=== PATIENT | female | born 1995 | race Caucasian/White ===

== ENCOUNTER 2021-06-13 02:01 | Emergency (ER) | payer SELFPAY ==
[2021-06-13] VITALS (7 sets, daily range): BP systolic 120–157; BP diastolic 67–102; PULSE 68–110; RESP 12–20; TEMP 36.6; O2SAT 99–100
--- NOTE | ~2021-06-13 | XR_ITS ---
EXAMINATION: XR chest 2V DATE: 06/13/2021 03:04 INDICATION: Shortness of breath TECHNIQUE: PA and lateral views of the chest are obtained. COMPARISON: None available FINDINGS: The lungs are free of acute opacities. There is no pleural effusion or pneumothorax. The ca rdiomediastinal silhouette is normal. The visualized bones and soft tissues are unremarkable. IMPRESSION: 1. No acute cardiopulmonary abnormality. Reviewed, dictated and finalized at location A. MANAGER
--- NOTE | 2021-06-13 02:16 | ECG_ITS ---
Measurements Intervals [place] Rate: 82 P: 52 AR: 148 QRS: 21 QRSD: 108 T: 41 QT: 341 QTc: 400 Interpretive Statements SINUS RHYTHM INCOMPLETE RIGHT BUNDLE BRANCH BLOCK BORDERLINE ECG Electronically Signed On 06-13-2021 7:16:16 [facility] by Marcial Kinney D.O.
[2021-06-13 02:46] LABS: Basophils Percent Auto 0.3 % (0.2-1.2); Eosinophils Absolute Auto 0.2 K/mm3 (0-0.3); Eosinophils Percent Auto 1.7 % (0-4.4); Hemoglobin 11.9 g/dL (12.0-15.0); Immature Granulocyte Absolute 0.03 K/mm3 (0.00-0.031); Immature Granulocyte Percent A 0.3 % (0-0.5); Lymphocytes Absolute Auto 3.03 K/mm3 (0.9-3.2); Lymphocytes Percent Auto 34.4 % (18.3-44.2); Mean Corpuscular HGB Conc 32.2 g/dl (32-36); Mean Corpuscular Hemoglobin 27.7 pg (26-34); Mean Corpuscular Volume 86.2 fl (80-100); Mean Platelet Volume 9.6 fl (7.4-10.4); Monocytes Absolute Auto 0.5 K/mm3 (0.1-0.6); Monocytes Percent Auto 5.8 % (2.6-8.5); Neutrophils Absolute Auto 5.1 K/mm3 (1.3-6.7); Neutrophils Percent Auto 57.5 % (45.5-73.1); Platelet Count Result 255 k/mm3 (150-375); Red Blood Count 4.29 M/mm3 (4.2-5.4); Red Cell Distribution Width 14.2 % (11.5-14.5); White Blood Count 8.8 K/mm3 (4.5-10.0)
[2021-06-13 02:55] LABS: INR 0.9; Prothrombin Time 11.6 Seconds (11.1-14.7)
[2021-06-13 02:56] LABS: Alanine Aminotransferase 19 U/L (4-35); Albumin Level 4.4 g/dL (3.5-5.1); Alkaline Phosphatase 76 U/L (38-126); Anion Gap 6 mmol/L (8-16); Aspartate Amino Transferase 26 U/L (14-36); Bilirubin,Total 0.5 mg/dL (0.2-1.3); Blood Urea Nitrogen 13 mg/dL (7-17); Calcium 9.4 mg/dL (8.4-10.2); Carbon Dioxide 26 mmol/L (22-30); Chloride 101 mmol/L (98-107); Estimated Glomerular Filt Rate > 60; Glucose 109 mg/dL (65-110); Partial Thromboplastin Time 28.5 SECONDS (22.3-36.8); Potassium 3.5 mmol/L (3.4-5.0); Sodium 133 mmol/L (137-145)
--- NOTE | 2021-06-13 02:59 | ED.GENADULT ---
HPI - General Adult General Chief complaint: Unspecified Stated complaint: Right leg pain, anxiety and sob Time Seen by Provider: 06/13/21 02:15 Source: patient and RN notes reviewed Mode of arrival: ambulatory Limitations: no limitations History of Present Illness HPI narrative: This is a 26 year old female who presents for evaluation of shortness of breath. PAtient states she had weird feeling to right hip and thigh. She is unable to describe it but said something just didn't feel right. This caused her to be anxious . She reports feeling anxious and short of breath so she came to ER. She denies any leg swelling or discoloration. She denies cough, fever, chills, nausea or vomiting. She does report history of intermittent episodes of anxiety. She denies smoking or taking OCP. Related Data Home Medications Medication Instructions Recorded Confirmed No Home Medications 06/13/21 06/13/21 Allergies Allergy/AdvReac Type Severity Reaction Status Date / Time No Known Allergies Allergy Verified 06/13/21 02:08 Review of Systems Review of Systems: All systems reviewed & are unremarkable except as noted in HPI and below PMFSH Past Medical History Medical History (Updated 06/13/21 @ 05:52 by Lorenza Ballard MD) Patient denies medical problems Surgical History Surgical History (Updated 06/13/21 @ 05:48 by Lorenza Ballard MD) History of bunionectomy of both great toes Social History Social History (Updated 06/13/21 @ 05:48 by Lorenza Ballard MD) Smoking status: Never smoker Alcohol intake: never Substance use: never Exam Narrative: GENERAL: Well-appearing, well-nourished, and in no acute distress. HEAD: Normocephalic, atraumatic EYES: PERRLA and EOMI, conjunctiva clear without discharge THROAT:Mucous membranes moist, Oropharynx normal without erythema, exudate, peritonsillar swelling or fluctuance NECK: Supple, without lymphadenopathy or mass RESPIRATORY: No respiratory distress, Airway patent, Respirations non-labored, Clear to auscultation without rales, rhonchi or wheeze HEART: Regular rate and rhythm. No murmur heard. Normal peripheral pulses. ABDOMEN: Soft, nontender, nondistended, normal active bowel sounds. No masses. No rebound or guarding, No organomegaly. EXTREMITIES: No edema, normal strength with full range of motion. SKIN: Warm, dry, normal color without rash NEURO: Alert and oriented x3. CN 2-12 grossly intact. No focal deficits. PSYCH: Normal mood and affect. Course Reevaluation(s) Reevaluation #1: I Discussed with patient labs and xray unremarkable. She appears to have strong pulses in feet, no signs of ischemia and neurovascularly intact. This appear to be anxiety as well Date: 06/13/21 Time: 05:51 Vital Signs Vital signs: Vital Signs Temperature 97.9 F 06/13/21 02:05 Pulse Rate 110 H 06/13/21 02:05 Respiratory Rate 18 06/13/21 02:05 Blood Pressure 157/102 H 06/13/21 02:05 Pulse Oximetry 100 06/13/21 02:05 Temperature 97.9 F 06/13/21 02:05 Pulse Rate 78 06/13/21 06:13 Respiratory Rate 14 06/13/21 06:13 Blood Pressure 122/72 06/13/21 06:13 Pulse Oximetry 100 06/13/21 06:13 Medical Decision Making Vital Signs Vital Signs: Vital Signs Temperature 97.9 F 06/13/21 02:05 Pulse Rate 110 H 06/13/21 02:05 Respiratory Rate 18 06/13/21 02:05 Blood Pressure 157/102 H 06/13/21 02:05 Pulse Oximetry 100 06/13/21 02:05 Temperature 97.9 F 06/13/21 02:05 Pulse Rate 78 06/13/21 06:13 Respiratory Rate 14 06/13/21 06:13 Blood Pressure 122/72 06/13/21 06:13 Pulse Oximetry 100 06/13/21 06:13 Lab Data Lab results reviewed: Yes I reviewed the patient's lab results. Result diagrams: 06/13/21 02:36 06/13/21 02:37 Labs: Lab Results 06/13/21 06/13/21 06/13/21 Range/Units 02:36 02:36 02:37 WBC 8.8 (4.5-10.0) K/mm3 RBC 4.29 (4.2-5.4) M/mm3 Hgb 11.9
[2021-06-13 03:02] LABS: D Dimer 0.27 ug/mL (<0.48)
[2021-06-13 03:06] LABS: Alveolar/Arterial O2 Gradient 49.3 mmHg; Base Excess ABG -1.3 mEq/l (+/-2.0); Carboxyhemoglobin 0.3 % THb (0-2.0); Fractional Inspired Oxygen 21 %; HCO3 ABG 22.3 mEq/l (22.0-26.0); Methemoglobin ABG 0.3 %THb (0-1.5); Oxygen Content ABG 16.4 %vol (16.0-22.0); Oxyhemoglobin 91.3 % THb (90.0-100.0); PCO2 ABG 33.9 mmHg (35.0-45.0); PO2 ABG 59.8 mmHg (80.0-100.0); PO2 FiO2 Ratio Arterial Blood 2.85 %; Reduced Hemoglobin 8.1 %THb (0-5.0); Total Hemoglobin 12.8 g/dL (12.0-18.0); pH ABG 7.436 (7.350-7.450)
[2021-06-13 03:07] LABS: Device ROOM AIR; Modified Allen's Test Pass; Site Drawn RIGHT RADIAL
== END 2021-06-13 06:15 | disposition home or self-care (01) ==
PROVIDERS: Emergency Provider General Practice; PCP Family Medicine
DX: F41.9 Anxiety disorder, unspecified (principal); R20.2 Paresthesia of skin; I45.10 Unspecified right bundle-branch block
CPT/HCPCS: 36415; 36600; 71046; 80053; 81025; 82375; 82805; 83050; 83605; 85025; 85380; 85610; 85730; 93005; 99283

== ENCOUNTER 2022-06-25 10:53 | Outpatient (CLI) | payer BC, SELFPAY ==
[2022-06-25] VITALS (27 sets, daily range): BP systolic 141–151; BP diastolic 77–88; PULSE 76–100; O2SAT 96–100
--- NOTE | 2022-06-25 11:56 | PM.IMHP ---
H&P: HPI History of Present Illness Date/Time: 06/25/22 11:56 Chief Complaint: malpresentation of fetus Narrative: Radhika is at 27yo G1 at 38.2 here for ECV for obilque presentation with head in LUQ. EFW 22%, ALFONZO 10. only complicated by anemia and anxiety. Review of Systems Review of Systems: All systems reviewed & are unremarkable except as noted in HPI and below PMFSH Past Medical History Medical History (Updated 06/25/22 @ 11:58 by Leah Anders MD) Patient denies medical problems Surgical History Surgical History (Updated 06/13/21 @ 05:48 by Lorenza Ballard MD) History of bunionectomy of both great toes Family History Family History (Updated 06/12/22 @ 14:34 by Kathrine Zuleta RN) Father Hypertension Social History Social History (Updated 06/13/21 @ 05:48 by Lorenza Ballard MD) Smoking status: Never smoker Alcohol intake: never Substance use: never Spiritual care concerns: No Meds Home Medications and Allergies Home Medications Medication Instructions Recorded Confirmed Type ferrous sulfate 325 mg (65 mg 325 mg PO DAILY 06/12/22 06/12/22 History iron) tablet prenat.vits,eloina,sww-irrg-bhcbv 1 tablet PO DAILY 06/12/22 06/12/22 History Allergies Allergy/AdvReac Type Severity Reaction Status Date / Time No Known Allergies Allergy Verified 06/25/22 11:21 Vital Signs Vital Signs - 24 hr 06/25/22 11:11 06/25/22 11:15 06/25/22 11:31 Pulse Rate 82 81 78 Blood Pressure 145/82 H 145/86 H 142/88 H 06/25/22 11:45 Pulse Rate 80 Blood Pressure 142/87 H Exam Const: General: no acute distress Resp: Effort & Inspection: normal respiratory effort Auscultation: clear to auscultation bilaterally Cardio: Rate: regular rate Rhythm: regular rhythm GI: GI Palp: Yes Soft to palpation Extrem: General: normal to inspection Assessment and Plan Assessment and plan (1) malpresentation: Code(s): O32.9XX0 - Maternal care for malpresentation of fetus, unspecified, not applicable or unspecified Status: Acute Plan terbutaline consented for ECV, will proceed FHT category 1
[2022-06-25] MEDS: TERBUTALINE SULFATE 1 MG/ML VIAL 0.25 MG SUB-Q (12:08)
--- NOTE | 2022-06-25 12:32 | W.PM.PROC2 ---
Procedure Note - Detailed Date of Procedure 06/25/22 Pre-op Diagnosis malpresentation Post-op Diagnosis Same Procedure Performed External Cephalic Version, failed Surgeon Leah Anders MD [employer] Chauf[employer]ur none Anesthesia None Indications oblique presentation with head in LUQ Description of Procedure heart tones were category 1 prior to procedure. She received terbutaline preprocedure. Ultrasound was done verifying anterior placenta, adequate fluid, and oblique presentation with head in the LUQ. Using ultrasound gel as lubricant, several attempts were made at both a forward roll and backward roll, but the head only moved to midline in the upper quadrant. Heart tones were intermittently visualized with the ultrasound and were normal. The procedure was terminated. Radhika tolerated the procedure well. The baby was placed back on the monitor for an additional hour. Estimated Blood Loss 0 Drains No Packing No Pathology None sent Complications No immediate complications Condition Stable Disposition Other (home after monitoring complete.)
--- NOTE | 2022-06-25 13:44 | PC.NURSE ---
Pt denies NASH, dizziness, changes in vision, RUQ, or swelling. Pt aware to come to [facility] to be evaluated for nay of these s/s. Pt reports she has hx of anxiety attacks and felt very anxious for the version.
== END 2022-06-25 13:40 | disposition home or self-care (01) ==
LOC: ANHOBOP 10:59 → ANHOBPP 11:01
PROVIDERS: PCP Family Medicine; Visit Provider Obstetrics & Gynecology
DX: O32.1XX0 Maternal care for breech presentation, not applicable or unspecified (principal); Z3A.00 Weeks of gestation of pregnancy not specified
CPT/HCPCS: 59412; 96372; 99199; J3105

== ENCOUNTER 2022-06-28 20:55 | Outpatient (RCR) | payer BC, SELFPAY ==
[2022-06-28 21:38] VITALS: BP 132/80; PULSE 84
== END 2022-07-16 13:38 | disposition home or self-care (01) ==
LOC: ANHOBOP 20:55
PROVIDERS: PCP Family Medicine; Visit Provider Obstetrics & Gynecology
DX: O36.8130 Decreased fetal movements, third trimester, not applicable or unspecified (principal); Z3A.38 38 weeks gestation of pregnancy
CPT/HCPCS: 59025

== ENCOUNTER 2022-07-02 05:29 | Inpatient (IN) | payer BC, SELFPAY ==
[2022-07-02] VITALS (60 sets, daily range): BP systolic 104–141; BP diastolic 52–101; PULSE 56–99; RESP 12–18; TEMP 36.1–36.6; O2SAT 96–100; BMI 36.8
--- NOTE | 2022-07-02 05:48 | LDADM ---
This patient, Radhika Tamez, was admitted to Labor/Delivery/Recovery 120 on 07/02/22 at 05:29. Plans for labor, pain management and were discussed with patient. Patient/family oriented to hospital policies and general routines including ID bracelet, bed and alarms, visiting hours, pain management, procedures, bathroom and other care routines, personal items, smoking policy, room service/diet and guest tray routines, security routines, and visiting hours. Patient/Family are encouraged to report perceived risks to care and to ask questions if they do not understand what they are told or what they should do. See OBIX for further documentation.
[2022-07-02 06:21] LABS: Basophils Percent Auto 0.3 % (0.2-1.2); Eosinophils Absolute Auto 0.1 K/mm3 (0-0.3); Eosinophils Percent Auto 0.8 % (0-4.4); Hematocrit 31.9 % (37.0-47.0); Hemoglobin 10.3 g/dL (12.0-15.0); Immature Granulocyte Absolute 0.05 K/mm3 (0.00-0.031); Immature Granulocyte Percent A 0.6 % (0-0.5); Lymphocytes Absolute Auto 1.85 K/mm3 (0.9-3.2); Lymphocytes Percent Auto 21.4 % (18.3-44.2); Mean Corpuscular HGB Conc 32.3 g/dl (32-36); Mean Corpuscular Hemoglobin 27.5 pg (26-34); Mean Corpuscular Volume 85.1 fl (80-100); Mean Platelet Volume 10.2 fl (7.4-10.4); Monocytes Absolute Auto 0.4 K/mm3 (0.1-0.6); Monocytes Percent Auto 4.7 % (2.6-8.5); Neutrophils Absolute Auto 6.2 K/mm3 (1.3-6.7); Neutrophils Percent Auto 72.2 % (45.5-73.1); Platelet Count Result 239 k/mm3 (150-375); Red Blood Count 3.75 M/mm3 (4.2-5.4); Red Cell Distribution Width 15.5 % (11.5-14.5); White Blood Count 8.7 K/mm3 (4.5-10.0)
[2022-07-02] MEDS: LACTATED RINGERS 1,000 ML 125 ML IV CONT ×3 (06:22→13:47)
--- NOTE | 2022-07-02 06:43 | WPDANESEPP ---
Anes - Eval Pre Procedure Procedure: Operation Date: 07/02/22 07:30 Proposed Procedures p Section - Leah Anders MD Date/Time: 07/02/22 06:43 Pre Op Diagnosis: C/Section Patient Data Age: 27 Gender: F Height: 1.73 m Weight: 110 kg Last Vital Signs Pulse 74 07/02/22 06:31 BP 134/76 07/02/22 06:31 O2 Del Method Room Air 07/02/22 05:47 Allergies Allergy/AdvReac Type Severity Reaction Status Date / Time No Known Allergies Allergy Verified 07/02/22 05:45 Home Medications Medication Instructions Recorded Confirmed Type ferrous sulfate 325 mg (65 mg 325 mg PO DAILY 06/12/22 07/02/22 History iron) tablet prenat.vits,eloina,iwm-qreo-ocfwk 1 tablet PO DAILY 06/12/22 07/02/22 History Laboratory Tests 07/02/22 07/02/22 06:04 06:04 WBC 8.7 K/mm3 K/mm3 (4.5-10.0) RBC 3.75 M/mm3 L M/mm3 (4.2-5.4) Hgb 10.3 g/dL L g/dL (12.0-15.0) Hct 31.9 % L % (37.0-47.0) MCV 85.1 fl fl (80-100) MCH 27.5 pg pg (26-34) MCHC 32.3 g/dl g/dl (32-36) RDW 15.5 % H % (11.5-14.5) Plt Count 239 k/mm3 k/mm3 (150-375) MPV 10.2 fl fl (7.4-10.4) Immature Gran % (Auto) 0.6 % H % (0-0.5) Neut % (Auto) 72.2 % % (45.5-73.1) Lymph % (Auto) 21.4 % % (18.3-44.2) [place] % (Auto) 4.7 % % (2.6-8.5) Eos % (Auto) 0.8 % % (0-4.4) Baso % (Auto) 0.3 % % (0.2-1.2) Lymph # (Auto) 1.85 K/mm3 K/mm3 (0.9-3.2) [place] # (Auto) 0.4 K/mm3 K/mm3 (0.1-0.6) Eos # (Auto) 0.1 K/mm3 K/mm3 (0-0.3) Baso # (Auto) 0.0 K/mm3 K/mm3 (0.0-0.1) Abs Immat Gran (auto) 0.05 K/mm3 H K/mm3 (0.00-0.031) Absolute Neuts (auto) 6.2 K/mm3 K/mm3 (1.3-6.7) Absolute Nucleated RBC 0.0 K/mm3 K/mm3 (0.0-0.012) Nucleated RBC % 0.0 % % (0.0-0.2) RPR Pending Patient hx anesthesia problems: none Family hx anesthesia problems: none Results Review: All pre-operative results and documents have been reviewed as part of the pre-operative evaluation. [facility] Past Medical History Medical History Patient denies medical problems Surgical History Surgical History History of bunionectomy of both great toes Family History Family History Father Hypertension Social History Social History Smoking status: Never smoker Alcohol intake: never Substance use: never Lack of Transportation: No Lack of Food: Never True Current Housing: I Have Housing Concerned About Future Housing: No Difficulty Paying Gas/Electric Bills: No Difficulty Paying for Meds: No Currently Unemployed: No Education: Bachelor's Degree Difficulty w/ Childcare or Family Care: No Spiritual care concerns: No Exam Day of Procedure 07/02/22 06:43 Patient weight: obese Heart: regular rate and rhythm Lungs: normal air movement Airway: Mallampati scale Neurological: alert and oriented
--- NOTE | 2022-07-02 07:02 | P.PNAN_ITS ---
Anes - Eval Final PreProcedure Day of Procedure 07/02/22 07:02 Patient weight: obese Heart: regular rate and rhythm Lungs: clear to auscultation Airway: Mallampati scale class II Neurological: alert and oriented Last oral intake: >/= 8 hours ASA classification: II Emergent: no Anesthetic plan: proceed Anesthesia type and monitoring: regional spinal and standard monitoring Results Review: All pre-operative results and documents have been reviewed as part of the pre- operative evaluation. Informed Consent: The patient's anesthetic plan and its attendant risks and benefits were discussed with the patient/family/POA. Questions were solicited and answers provided to the satisfaction of the patient/family/POA.
--- NOTE | 2022-07-02 07:27 | PC.NURSE ---
0723--BS u/s per Dr. Anders, position continues to be breech. POC discussed with pt., will proceed with c/s.
--- NOTE | 2022-07-02 07:27 | PM.IMHP ---
H&P: HPI History of Present Illness Date/Time: 07/02/22 07:27 Chief Complaint: CS for breech Narrative: Radhika is a 27yo G1 at 39.2 with a breech baby who presents for CS. complicated by anemia and anxiety. Review of Systems Review of Systems: All systems reviewed & are unremarkable except as noted in HPI and below PMFSH Past Medical History Medical History Patient denies medical problems Surgical History Surgical History History of bunionectomy of both great toes Family History Family History Father Hypertension Social History Social History Smoking status: Never smoker Alcohol intake: never Substance use: never Lack of Transportation: No Lack of Food: Never True Current Housing: I Have Housing Concerned About Future Housing: No Difficulty Paying Gas/Electric Bills: No Difficulty Paying for Meds: No Currently Unemployed: No Education: Bachelor's Degree Difficulty w/ Childcare or Family Care: No Spiritual care concerns: No Meds Home Medications and Allergies Home Medications Medication Instructions Recorded Confirmed Type ferrous sulfate 325 mg (65 mg 325 mg PO DAILY 06/12/22 07/02/22 History iron) tablet prenat.vits,eloina,lab-wjtq-pskaj 1 tablet PO DAILY 06/12/22 07/02/22 History Allergies Allergy/AdvReac Type Severity Reaction Status Date / Time No Known Allergies Allergy Verified 07/02/22 05:45 Vital Signs Vital Signs - 24 hr 07/02/22 05:47 07/02/22 06:16 07/02/22 06:31 Pulse Rate 79 74 Blood Pressure 137/77 134/76 Oxygen Delivery Room Air 07/02/22 06:46 07/02/22 07:01 07/02/22 07:02 Pulse Rate 77 79 73 Blood Pressure 141/82 H 121/101 H 129/74 Oxygen Delivery 07/02/22 07:15 Pulse Rate 79 Blood Pressure 140/78 Oxygen Delivery Exam Const: General: no acute distress Resp: Effort & Inspection: normal respiratory effort Auscultation: clear to auscultation bilaterally Cardio: Rate: regular rate Rhythm: regular rhythm GI: GI Palp: Yes Soft to palpation Extrem: General: normal to inspection H&P: Results Labs Labs: Short CBC 07/02/22 Range/Units 06:04 WBC 8.7 (4.5-10.0) K/mm3 Hgb 10.3 L (12.0-15.0) g/dL Hct 31.9 L (37.0-47.0) % Plt Count 239 (150-375) k/mm3 Assessment and Plan Assessment and plan (1) malpresentation: Code(s): O32.9XX0 - Maternal care for malpresentation of fetus, unspecified, not applicable or unspecified Status: Acute Plan breech- will proceed with primary CS Discussed RBA and consented, will proceed FHT category 1 confirmed breech with BSUS
--- NOTE | 2022-07-02 07:29 | WPDHPUPDATE1 ---
History and Physical Update Update Date/Time: 07/02/22 07:29 History and Physical has been reviewed, including an updated exam of the patient. There are NO changes in the patient's condition. Risks, benefits, and alternatives have been discussed and questions answered. Patient agrees to proceed with procedure.
[2022-07-02] MEDS: ceFAZolin 2 GM/D5W 50 ML 2 GM/50 ML BAG IVPB (07:32)
--- NOTE | 2022-07-02 08:43 | PM.OBPRVD ---
OB - Delivery Note Procedure Delivery date: 07/02/22 Procedure: Procedures Operation Date: 07/02/22 07:30 Actual Procedure Side Surgeon p Section Leah Anders MD Events: Breech Presentation Route of delivery: Specimen: Yes (placenta) Quantitative Blood Loss (ml): 850 Anesthesia type: Epidural Disposition: Floor Complications: none Narrative: The patient was taken to the OR and had her epidural anesthesia dosed adequately. She was placed in dorsal supine position with left lateral tilt. SCDs and keenan had been placed. She was prepped and draped in the normal sterile fashion. A Pfannensteil skin incision was made and carried through to the underlying layer of fascia. The fascia was incised in the midline and then extended laterally using Stanley scissors. The muscles were in the midline and the peritoneum was entered bluntly. The peritoneal incision was extended inferiorly and superiorly with care to avoid the bladder. The bladder blade was then inserted, the vesicouterine peritoneum was grasped, incised with Metzenbaum scissors, and a bladder flap created. The bladder blade was reinserted. A low transverse uterine incision was made with a scalpel and extended bluntly. AROM was performed and fluid was noted to be clear. The baby was delivered in [place] breech presentation in normal fashion without difficulty. The baby's oropharynx was suctioned. Dut to poor tone the cord was clamped and cut and the baby was handed to nursery immediately. Cord blood was obtained and the placenta was then removed manually. The uterus was exteriorized. A moist lap sponge was used to curette the endometrium. The uterine incision was then closed with one layer of 0-Vicryl in a running, locking fashion. Good hemostasis was noted after a couple figure of eight sutures. The posterior cul de sac was irrigated with normal saline and cleared of all clot and debris. The uterus was returned to the abdomen. Both lateral gutters were then irrigated. The rectus muscles were inspected and found to be hemostatic. The fascia was reapproximated using 0-Vicryl in running fashion. The subcutaneous tissue was irrigated with normal saline and made hemostatic with Bovie electrocautery. The subcutaneous tissue was reapproximated with a layer of running 2-0 plain gut. The skin was then closed with absorbable michael. Steri strips and a bandage were applied. The uterus was evacuated. The patient tolerated the procedure very well. All counts were correct. She was taken to the recovery room in good condition. Baby Date of : 07/02/22 Time of : 08:02 Weeks of gestation at delivery: 39 gender: Female Weight (pounds): 6 Weight (ounces): 8 presentation: breech (footling) Placenta delivery description: Manual Removal Cord Vessel Description: 3 Vessels and Clamped/Cut score one minute: 6 score five minutes: 9
[2022-07-02] MEDS: DEXTROSE 5%/0.45% SOD CHL 1,000 ML 125 ML IV CONT (13:15)
[2022-07-02 14:41] LABS: Rapid Plasma Reagin Non-Reactive (NonReactive)
[2022-07-02] MEDS: IBUPROFEN 600 MG TABLET PO (16:13)
[2022-07-02] MEDS: DOCUSATE SODIUM 100 MG CAPSULE PO (16:14)
--- NOTE | 2022-07-02 17:42 | PC.NURSE ---
Radhika is spending time with her baby that is in level 2 nursery care. Unable to assess pt at this time due to not being in room.
[2022-07-02] MEDS: HYDROcodone/acetaminophen (*CRX) 5-325 MG TABLET 1 TAB PO (21:48)
[2022-07-03] VITALS: BP 119/67; PULSE 64; RESP 18; TEMP 36.6; O2SAT 97
[2022-07-03 04:30] VITALS: BP 116/63; PULSE 70; RESP 18; TEMP 36.6; O2SAT 97
[2022-07-03] MEDS: HYDROcodone/acetaminophen (*CRX) 5-325 MG TABLET 1 TAB PO ×3 (04:42→22:08)
[2022-07-03 05:28] LABS: Basophils Percent Auto 0.3 % (0.2-1.2); Eosinophils Absolute Auto 0.1 K/mm3 (0-0.3); Eosinophils Percent Auto 0.7 % (0-4.4); Hematocrit 27.2 % (37.0-47.0); Hemoglobin 8.6 g/dL (12.0-15.0); Immature Granulocyte Absolute 0.05 K/mm3 (0.00-0.031); Immature Granulocyte Percent A 0.7 % (0-0.5); Lymphocytes Absolute Auto 1.32 K/mm3 (0.9-3.2); Lymphocytes Percent Auto 18.2 % (18.3-44.2); Mean Corpuscular HGB Conc 31.6 g/dl (32-36); Mean Corpuscular Hemoglobin 27.9 pg (26-34); Mean Corpuscular Volume 88.3 fl (80-100); Mean Platelet Volume 10.4 fl (7.4-10.4); Monocytes Absolute Auto 0.3 K/mm3 (0.1-0.6); Monocytes Percent Auto 4.4 % (2.6-8.5); Neutrophils Absolute Auto 5.5 K/mm3 (1.3-6.7); Neutrophils Percent Auto 75.7 % (45.5-73.1); Platelet Count Result 185 k/mm3 (150-375); Red Blood Count 3.08 M/mm3 (4.2-5.4); Red Cell Distribution Width 15.9 % (11.5-14.5); White Blood Count 7.3 K/mm3 (4.5-10.0)
--- NOTE | 2022-07-03 07:26 | PM.OBPNVD ---
OB - PN: Subj Subjective Date/time seen: 07/03/22 07:26 Patient comments: no complaints and pain well controlled baby status: other (improving in level 2- no bradys over night) feeding status: exclusively breast feeding Narrative: POD 1 from primary CS. Doing well. Normal lochia. Eating, ambulating, keenan out. OB - PN: Obj Data Labs 07/03/22 04:31 Labs: Laboratory Results - last 24 hr 07/02/22 07/02/22 07/03/22 06:04 06:04 04:31 WBC 7.3 RBC 3.08 L Hgb 8.6 L Hct 27.2 L MCV 88.3 MCH 27.9 MCHC 31.6 L RDW 15.9 H Plt Count 185 MPV 10.4 Immature Gran % (Auto) 0.7 H Neut % (Auto) 75.7 H Lymph % (Auto) 18.2 L [place] % (Auto) 4.4 Eos % (Auto) 0.7 Baso % (Auto) 0.3 Lymph # (Auto) 1.32 [place] # (Auto) 0.3 Eos # (Auto) 0.1 Baso # (Auto) 0.0 Abs Immat Gran (auto) 0.05 H Absolute Neuts (auto) 5.5 Absolute Nucleated RBC 0.0 Nucleated RBC % 0.0 RPR Non-reactive Blood Type A Positive Antibody Screen Negative OB - PN A/P Plan day: 1 Plan: routine care Comments: IV iron Time Spent With Patient Time: Total time spent is greater than 50% in coordination of care (as documented) at patient's floor/unit and/or counseling patient: Exam Narrative: NAD abdomen soft, appropriately tender, incision bandaged Extremities nontender with 1+ edema
[2022-07-03] MEDS: DOCUSATE SODIUM 100 MG CAPSULE PO ×2 (09:00→17:18)
[2022-07-03] MEDS: POLYSACCHARIDE IRON COMPLEX 150 MG CAPSULE PO ×2 (09:00→17:18)
[2022-07-03 09:01] VITALS: BP 119/70; PULSE 74; RESP 18; TEMP 36.5; O2SAT 97
[2022-07-03] MEDS: IBUPROFEN 600 MG TABLET PO ×2 (09:01→17:17)
[2022-07-03] MEDS: IRON SUCROSE COMPLEX 200 MG in SODIUM CHLORIDE 0.9% IV 50 ML 120 MG IVPB (09:25)
--- NOTE | 2022-07-03 12:58 | PC.NURSE ---
0930 Went by W/C to the First Floor Nursery to visit in Level 2. 1250 Returned to room 279 in a W/C. In bed resting now.
--- NOTE | 2022-07-03 15:35 | WPDANLDPN2 ---
Anes-Prog Note L&D Date/Time: 07/03/22 15:35 Comfortable throughout: section Neuraxial method: spinal Epidural/Spinal procedure site: clean & non-tender Neuro status: Neuro function grossly intact. Cardiovascular status: normal Respiratory status: normal Airway patency: baseline Mental status: baseline Post-Op hydration status: normal Vital Signs: Last Vital Signs Temp 36.5 C 07/03/22 09:01 Pulse 74 07/03/22 09:01 Resp 18 07/03/22 09:01 BP 119/70 07/03/22 09:01 Pulse Ox 97 07/03/22 09:01 O2 Del Method Room Air 07/03/22 09:01 Pain score (VAS): 2 I/O: Intake & Output 07/02/22 07/03/22 07/03/22 23:59 07:59 15:59 Intake Total 240 Output Total 1750 Balance 240 -1750 Patient feedback: Patient satisfied with anesthetic care.
--- NOTE | 2022-07-03 15:35 | WPDANLDNPN2 ---
Anes-Prog Note L&D-Neuraxial Date/Time: 07/03/22 15:35 Neuraxial medications: intrathecal PF morphine Opiod-related complaints: none Patient feedback: Patient satisfied with post-operative pain management.
[2022-07-03] MEDS: HYDROcodone/acetaminophen (*CRX) 10-325 MG TABLET 1 TAB PO (17:20)
[2022-07-03 20:00] VITALS: BP 140/70; PULSE 68; RESP 18; TEMP 36.6; O2SAT 98
[2022-07-04] MEDS: IBUPROFEN 600 MG TABLET PO ×3 (04:01→17:10)
[2022-07-04] MEDS: HYDROcodone/acetaminophen (*CRX) 5-325 MG TABLET 1 TAB PO ×4 (04:02→21:42)
--- NOTE | 2022-07-04 06:21 | PM.OBPNVD ---
OB - PN: Subj Subjective Date/time seen: 07/04/22 06:21 Patient comments: no complaints and pain well controlled baby status: doing well and bottle feeding well Narrative: baby doing well in level 2. OB - PN: Obj Data Labs 07/03/22 04:31 OB - PN A/P Plan day: 2 Plan: routine care Time Spent With Patient Time: Total time spent is greater than 50% in coordination of care (as documented) at patient's floor/unit and/or counseling patient: Exam Narrative: NAD abdomen soft, appropriately tender, incision CDI Extremities nontender with 1+ edema
[2022-07-04 10:45] VITALS: BP 130/73; PULSE 80; RESP 18; TEMP 36.8; O2SAT 99
[2022-07-04] MEDS: POLYSACCHARIDE IRON COMPLEX 150 MG CAPSULE PO ×2 (10:59→17:09)
[2022-07-04] MEDS: IRON SUCROSE COMPLEX 200 MG in SODIUM CHLORIDE 0.9% IV 50 ML 120 MG IVPB (11:01)
--- NOTE | 2022-07-04 13:57 | PC.NURSE ---
Called Pharmacy and asked for them to send up IV Iron. They stated they would get it sent up. 1052 Called Pharmacy again and asked for them to send up IV iron for this pt. They stated they were finishing it and will sent it up. 1100 received the IV Iron.
[2022-07-04] MEDS: DOCUSATE SODIUM 100 MG CAPSULE PO (17:09)
[2022-07-04 18:40] VITALS: BP 133/68; PULSE 77; RESP 16; TEMP 36.7
--- NOTE | 2022-07-04 18:49 | PC.NURSE ---
1100 Patient viewed the discharge video Mother & Baby Care, The First Two Weeks . Patient was given the opportunity and encouraged to ask questions. Patient verbalized understanding of information shared and has been given the mother/baby guide for home reference.
[2022-07-05] MEDS: IBUPROFEN 600 MG TABLET PO (04:30)
[2022-07-05] MEDS: HYDROcodone/acetaminophen (*CRX) 5-325 MG TABLET 1 TAB PO ×2 (04:30→09:10)
--- NOTE | 2022-07-05 07:03 | PM.OBPNVD ---
OB - PN: Subj Subjective Date/time seen: 07/05/22 07:03 Patient comments: no complaints and pain well controlled baby status: doing well and bottle feeding well Narrative: would like DC home OB - PN: Obj Data Labs 07/03/22 04:31 OB - PN A/P Assessment and Plan (1) delivery delivered: Code(s): O82 - Encounter for delivery without indication Status: Acute Plan day: 3 Plan: routine care and discharge home Comments: home today if ok with peds FU 1 week Time Spent With Patient Time: Total time spent is greater than 50% in coordination of care (as documented) at patient's floor/unit and/or counseling patient: Exam Narrative: NAD abdomen soft, appropriately tender, incision CDI Extremities nontender with 1+ edema
--- NOTE | 2022-07-05 07:07 | PM.OBDSVD ---
DS: Admitting Diagnosis Discharge Date 07/05/22 Admitting Diagnosis term , malpresentation DS: Discharge Diagnosis Discharge Diagnosis (1) delivery delivered: Code(s): O82 - Encounter for delivery without indication Status: Acute OB - DS: Summary Hospital Course Hospital Course: Radhika presented for scheduled section for malpresentation. Her delivery and course was uncomplicated. She was discharged home on POD 3. OB Procedures : Ultrasound OB Procedures Intrapartum: OB Procedures: : None Peripartum Data Delivery Method: Section Procedures: Procedures Operation Date: 07/02/22 07:30 Actual Procedure Side Surgeon p Section eLah Anders MD complications: none Status at Discharge Functional status at discharge: independent ambulation Time Spent with Patient Time attestation: Total time spent providing and/or coordinating discharge services: Exam Narrative: NAD abdomen soft, appropriately tender, incision CDI Discharge Plan Discharge Attending physician on discharge: Leah Anders Discharging Clinician: Leah Anders Anticipated Discharge Date/Time: 07/05/22 07:04 Patient Disposition: Home, Self-Care Activity: may shower and pelvic rest Diet: regular Patient Instructions: Antibiotic Form Stand Alone Forms: General Discharge Information Follow-up/Referrals: Leah Anders MD [Physician] - 1 Week Discharge Medications: New hydrocodone-acetaminophen 5-325 mg Tablet 1 tablet PO Q4-5H PRN (Reason: Moderate Pain (4-6)) Qty: 30 0RF docusate sodium 100 mg Capsule 100 mg PO BID PRN (Reason: Constipation) Qty: 60 0RF ibuprofen 600 mg Tablet 600 mg PO Q6H PRN (Reason: Cramping) Qty: 60 0RF Continued ferrous sulfate 325 mg (65 mg iron) Tablet 325 mg PO DAILY #2 Tablet 1 tablet PO DAILY Date of admission: 07/02/22 05:29 Primary Care Provider: Rainer Gonsalez Admitting Provider: Leah Anders Attending physician on admission: Leah Anders Condition: Stable
[2022-07-05 07:50] VITALS: BP 134/75; PULSE 84; RESP 18; TEMP 37.2; O2SAT 98
[2022-07-05] MEDS: POLYSACCHARIDE IRON COMPLEX 150 MG CAPSULE PO (09:10)
[2022-07-05] MEDS: DOCUSATE SODIUM 100 MG CAPSULE PO (09:10)
[2022-07-06 07:47] VITALS: BP 134/79; PULSE 95; RESP 20; TEMP 37.1; O2SAT 98
== END 2022-07-05 10:55 | disposition home or self-care (01) | DRG 788 ==
LOC: ANHLDR 05:32 → ANHOB2 11:21
PROVIDERS: Admitting Provider Obstetrics & Gynecology; PCP Family Medicine; Visit Provider Obstetrics & Gynecology
PROC: 10D00Z1 Extraction of Products of Conception, Low, Open Approach (ICD-10-PCS; CPT 59514; principal; 2022-07-02 07:30)
DX: O32.8XX0 Maternal care for other malpresentation of fetus, not applicable or unspecified (principal); Z3A.39 39 weeks gestation of pregnancy; Z37.0 Single live birth; O99.02 Anemia complicating childbirth; D64.9 Anemia, unspecified
CPT/HCPCS: 36415; 85025; 86592; 86850; 86900; 86901; A9270; J0131; J0690; J1756; J2274; J2405; J2590; J7120

== ENCOUNTER 2022-10-12 17:04 | Emergency (ER) | payer BC, SELFPAY ==
--- NOTE | 2022-10-12 17:21 | ED.URI ---
HPI - URI/Sore Throat General Chief Complaint: Upper Respiratory Infection Stated Complaint: congestion,sorethroat Source: patient and RN notes reviewed Mode of arrival: ambulatory Limitations: no limitations History of Present Illness HPI Narrative: 27-year-old female presented for complaint of sore throat, nasal congestion, nausea, headache, body aches over the last 3 days. Has had occasional nausea and diarrhea since onset, which has resolved today. Taking NyQuil for symptoms. Patient endorses exposure to a teen who is hospitalized for meningitis. Denies photophobia, neck pain or stiffness, vomiting, lethargy, or fever. MD elicited complaint: cough Related Data Home Medications Medication Instructions Recorded Confirmed ferrous sulfate 27 mg iron tablet 27 mg PO DAILY 10/12/22 10/12/22 Allergies Allergy/AdvReac Type Severity Reaction Status Date / Time Benzion compund AdvReac Mild Blister Uncoded 10/12/22 17:18 Review of Systems Review of Systems: ROS per HPI PMFSH Past Medical History Medical History Patient denies medical problems Surgical History Surgical History History of bunionectomy of both great toes Family History Family History Father Hypertension Social History Social History Smoking status: Never smoker Alcohol intake: never Substance use: never Lack of Transportation: No Lack of Food: Never True Current Housing: I Have Housing Concerned About Future Housing: No Difficulty Paying Gas/Electric Bills: No Difficulty Paying for Meds: No Currently Unemployed: No Education: Bachelor's Degree Difficulty w/ Childcare or Family Care: No Spiritual care concerns: No Exam Narrative: GENERAL: mildly Ill-appearing, nontoxic no acute distress. HEAD: Normocephalic EYES: PERRLA, conjunctivae clear ENT: Mucous membranes moist. TM pearly villafuerte with dull light reflex bilaterally; no tragal tenderness. Oropharynx erythematous without lesions or exudate, no drooling, no hoarseness, no trismus, uvula midline. No tripod positioning, muffled voice, soft palate or pharyngeal wall bulging NECK: Supple. Full ROM. No lymphadenopathy CHEST: Clear to auscultation, breath sounds equal. No wheezing, rhonchi, rales, or stridor. No respiratory distress, speaks in full sentences. HEART: Regular rate and rhythm. No murmur heard. SKIN: Warm, dry, no rash. NEURO: Alert and oriented x3. PSYCH: Normal mood and affect Course Course Emergency Course: Patient is aware of diagnosis, understands and agrees to treatment plan. Anticipatory guidance given. Patient agrees to follow-up as directed and is aware of reasons to seek care at the emergency department. Portions of this record may have been created with voice recognition software Level of Care: Express Care Visit Vital Signs Vital signs: Vital Signs Temperature 97.2 F L 10/12/22 17:22 Pulse Rate 86 10/12/22 17:22 Respiratory Rate 18 10/12/22 17:22 Blood Pressure 128/79 10/12/22 17:22 Pulse Oximetry 100 10/12/22 17:22 Oxygen Delivery Room Air 10/12/22 17:22 Temperature 97.2 F L 10/12/22 17:22 Pulse Rate 86 10/12/22 17:22 Respiratory Rate 18 10/12/22 17:22 Blood Pressure 128/79 10/12/22 17:22 Pulse Oximetry 100 10/12/22 17:22 Oxygen Delivery Room Air 10/12/22 17:22 reviewed MDM - URI/Sore Throat MDM Narrative Medical decision making narrative: Results of covid, flu and strep reviewed with pt. Discussed meningitis symptoms. Advised supportive measures and signs/symptoms to go to the ER. Pt is appropriate for outpt treatment and f/u. Differential Diagnosis Differential diagnosis: Likely upper respiratory infection, sinusitis and viral infection Lab Data Labs: Lab Resu
[2022-10-12 17:22] VITALS: BP 128/79; PULSE 86; RESP 18; TEMP 36.2; O2SAT 100
== END 2022-10-12 17:55 | disposition home or self-care (01) ==
PROVIDERS: Emergency Provider Nurse Practitioner Family; PCP Family Medicine
DX: J06.9 Acute upper respiratory infection, unspecified (principal); Z20.822 Contact with and (suspected) exposure to COVID-19
CPT/HCPCS: 87081; 87426; 87804; 87880; 99213; C9803; G0463

== ENCOUNTER 2023-04-06 00:57 | Observation (INO) | payer BC, SELFPAY ==
[2023-04-06] VITALS (14 sets, daily range): BP systolic 122–150; BP diastolic 69–97; PULSE 50–65; RESP 14–15; TEMP 36.3–36.4; O2SAT 92–100; BMI 32.0; BMI 31.9
--- NOTE | ~2023-04-06 | CT_ITS ---
CT of the Abdomen and Pelvis: Indication: Abdominal pain Technique: 2.5 mm axial scans were obtained through the abdomen and pelvis following intravenous adm inistration of 100 cc of Omnipaque 350. Dose reduction technique was used on this scan by utilizing a utomated exposure control and iterative reconstruction technique. The dose-length product (DLP) was 9 00.30 mGy-cm. Findings: Scans through the lung bases are unremarkable. The liver, spleen, pancreas, adrenals and kidneys are within normal limits. Tiny gallstones are prese nt. No evidence of aortic aneurysm. No lymphadenopathy. No bowel obstruction or bowel wall thickening. Normal appendix present. Images through the pelvis were performed. Urinary bladder unremarkable. No adnexal mass evident. No a scites. Impression: Cholelithiasis. No definite CT evidence for acute cholecystitis. Consider HIDA scan as indicated. Reviewed, dictated and finalized at [facility]. Impression: Cholelithiasis. No definite CT evidence for acute cholecystitis. Consider HIDA scan as indicated.
--- NOTE | 2023-04-06 01:23 | ED.GENADULT ---
HPI - General Adult General Chief complaint: Abdominal Pain <NEDA Gilliam Last Filed: 04/06/23 03:06> Stated complaint: abd pain, nausea <NEDA Gilliam Last Filed: 04/06/23 03:06> Time Seen by Provider: 04/06/23 01:15 <NEDA Gilliam Last Filed: 04/06/23 03:06> Source: patient <NEDA Gilliam Last Filed: 04/06/23 03:06> Mode of arrival: ambulatory <NEDA Gilliam Last Filed: 04/06/23 03:06> Limitations: no limitations <NEDA Gilliam Last Filed: 04/06/23 03:06> History of Present Illness HPI narrative: This is a 28-year-old female who presents to the ED with chief complaint of mid to upper abdominal pain for the past several months and worse in the past day. Reports this pain is normally intermittent but has been much worse in the past day. Does not radiate anywhere else. Reports 8 out of 10 here. Reports nausea with 20 episodes of vomiting today. Reports she often has a metallic taste in her mouth. Reports pain is usually onset after eating. Denies any problems with urinary symptoms, bowel movements. Denies GI bleeding symptoms. Denies chest pain, shortness of breath, cough, fevers, chills. Past abdominal surgical history of . This was in June 2022. Denies any complications. Feels like I been having stomach problems ever since my . <NEDA Gilliam Last Filed: 04/06/23 03:06> Related Data Home medications: Home Medications Medication Instructions Recorded Confirmed ferrous sulfate 27 mg iron tablet 27 mg PO DAILY 10/12/22 10/12/22 <NEDA Gilliam Last Filed: 04/06/23 03:06> Allergies/adverse reactions: Allergies Allergy/AdvReac Type Severity Reaction Status Date / Time Benzion compund AdvReac Mild Blister Uncoded 10/12/22 17:18 <NEDA Gilliam Last Filed: 04/06/23 03:06> Review of Systems Review of Systems: All systems as dictated in HPI <Didier Schumacher PA-C - Last Filed: 04/06/23 03:06> PMFSH Past Medical History Medical History: Medical History Patient denies medical problems <Didier Schumacher PA-C - Last Filed: 04/06/23 03:06> Surgical History Surgical History: Surgical History History of bunionectomy of both great toes <Didier Schumacher PA-C - Last Filed: 04/06/23 03:06> Family History Family History: Family History Father Hypertension <NEDA Gilliam Last Filed: 04/06/23 03:06> Social History Social History: Social History Smoking status: Never smoker Alcohol intake: never Substance use: never Lack of Transportation: No Lack of Food: Never True Current Housing: I Have Housing Concerned About Future Housing: No Difficulty Paying Gas/Electric Bills: No Difficulty Paying for Meds: No Currently Unemployed: No Education: Bachelor's Degree Difficulty w/ Childcare or Family Care: No Spiritual care concerns: No <NEDA Gilliam Last Filed: 04/06/23 03:06> Exam Narrative: GENERAL: Well-appearing, well-nourished, and in no acute distress. HEAD: Normocephalic, atraumatic. EYES: PERRLA and EOMI. ENT: Nares clear, no rhinorrhea or epistaxis. Mucous membranes moist. Oropharynx without tonsillar hypertrophy exudate or other lesions. NECK: Supple. No adenopathy or masses. CHEST: No respiratory distress. Clear to auscultation. No wheezes rales or rhonchi HEART: Regular rate and rhythm. No murmur heard. Normal peripheral pulses. ABDOMEN: Right upper quadrant tenderness with positive Neumann sign. Negative McBurney's point. Soft, otherwise nontender, nondistended, normal active bowel sounds. Negative peritoneal signs. MSK: Normal range of motion. No edema. SKIN: War
[2023-04-06 01:31] LABS: Appearance Urine Clear (Clear); Basophils Absolute Auto 0.1 K/mm3 (0.0-0.1); Basophils Percent Auto 0.5 % (0.2-1.2); Bilirubin Urine Negative (Negative); Blood Urine Negative (Negative); Color Urine Dark Yellow (Yellow); Eosinophils Percent Auto 0.3 % (0-4.4); Glucose Urine UA Negative (Negative); Hematocrit 39.2 % (37.0-47.0); Hemoglobin 12.5 g/dL (12.0-15.0); Immature Granulocyte Absolute 0.04 K/mm3 (0.00-0.031); Immature Granulocyte Percent A 0.4 % (0-0.5); Ketones Urine 3+ mg/dL (Negative); Leukocyte Esterase Ur Negative LEU/UL (Negative); Lymphocytes Absolute Auto 1.17 K/mm3 (0.9-3.2); Lymphocytes Percent Auto 11.4 % (18.3-44.2); Mean Corpuscular HGB Conc 31.9 g/dl (32-36); Mean Corpuscular Hemoglobin 27.6 pg (26-34); Mean Corpuscular Volume 86.5 fl (80-100); Mean Platelet Volume 9.8 fl (7.4-10.4); Monocytes Absolute Auto 0.4 K/mm3 (0.1-0.6); Monocytes Percent Auto 3.6 % (2.6-8.5); Neutrophils Absolute Auto 8.6 K/mm3 (1.3-6.7); Neutrophils Percent Auto 83.8 % (45.5-73.1); Nitrate Urine Negative (Negative); Platelet Count Result 261 k/mm3 (150-375); Protein Urine Negative (Negative); Red Blood Count 4.53 M/mm3 (4.2-5.4); Red Cell Distribution Width 13.5 % (11.5-14.5); Specific Grav Ur 1.026 (1.001-1.035); White Blood Count 10.3 K/mm3 (4.5-10.0); pH Urine 5.5 (5.0-9.0)
[2023-04-06 01:36] LABS: Add Urine Microscopic? NO
[2023-04-06 01:42] LABS: Alanine Aminotransferase 22 U/L (6-35); Albumin Level 4.3 g/dL (3.5-5.1); Alkaline Phosphatase 80 U/L (38-126); Anion Gap 7 mmol/L (8-16); Aspartate Amino Transferase 31 U/L (14-36); Blood Urea Nitrogen 9 mg/dL (7-17); Calcium 9.1 mg/dL (8.4-10.2); Carbon Dioxide 25 mmol/L (22-30); Chloride 103 mmol/L (98-107); Estimated CRCL calculation 124 ml/min; Estimated Glomerular Filt Rate > 60; Glucose 116 mg/dL (65-110); Lipase 64 U/L (23-300); Potassium 3.8 mmol/L (3.4-5.0); Sodium 135 mmol/L (137-145)
[2023-04-06] MEDS: SODIUM CHLORIDE 0.9% IV 1,000 ML 999 ML IV CONT (01:47)
[2023-04-06] MEDS: SODIUM CHLORIDE 0.9% IV 1,000 ML 125 ML IV CONT ×3 (04:59→21:22)
[2023-04-06] MEDS: FAMOTIDINE 20 MG/2 ML VIAL IV PUSH (04:59)
--- NOTE | 2023-04-06 05:51 | ADMGEN ---
This patient, Radhika Abbasi, was admitted to [facility] Surg Room 311-01. Patient/family oriented to hospital policies and general routines including ID bracelet, bed and alarms, visiting hours, pain management, procedures, bathroom and other care routines, personal items, smoking policy, room service/diet, and visiting hours. Information on how to activate the Rapid Response Team has been discussed. Patient/Family are encouraged to report perceived risks to care and to ask questions if they do not understand what they are told or what they should do.
--- NOTE | 2023-04-06 06:46 | PC.NURSE ---
I have reviewed the documentation of Doretha Stone RN and agree with recorded documentation.
--- NOTE | 2023-04-06 09:12 | PM.IMHP ---
H&P: HPI History of Present Illness Date/Time: 04/06/23 09:12 Chief Complaint: Epigastric abdominal pain Narrative: This is a 28-year-old who presented to the ER overnight with complaints of epigastric abdominal pain for 1 day. She had a delivery in June of 2022, and reports having intermittent symptoms since her delivery. She reports having heartburn, epigastric pain, and vomiting in the evening following certain meals. Initially, she thought it was possibly related to gluten, but the meals she described to me are high fat meals, such as pastas and pizza. Her pain would typically improve through the night after vomiting. Yesterday, she had eaten eggs and cat for a late breakfast with coffee, and shortly after developed the same epigastric abdominal pain. Her pain was more severe during this episode, and radiated across her entire upper abdomen and to her mid back. She describes it as a ?banding like pain?. She had associated nausea and vomiting. Due to her persistent pain, she came into the ER for further evaluation last night. Labs were essentially unremarkable. CT scan of the abdomen and pelvis was initially read by the virtual radiologist and showed prominent gallbladder with mild adjacent stranding and wall thickening, with calculi noted in the gallbladder neck, findings could be due to cholecystitis. Our service was contacted by the ED provider and she was admitted for surgical evaluation. This morning, the CT was read by our radiologists that suggest cholelithiasis without other evidence of cholecystitis. She is seen this morning on the medical floor. Her abdominal pain has improved since last night, but is still present. She is steam bone press tender in the right upper quadrant. Nausea and vomiting has resolved. No other complaints at this time. Review of Systems Review of Systems: All systems reviewed & are unremarkable except as noted in HPI and below Constitutional: Constitutional: Reports no additional constitutional complaints, Denies chills, Denies fatigue, Denies fever(s) and Reports weakness Eyes: Eyes: Reports no additional eye complaints ENT: Reports system reviewed and no additional complaints, except as documented and Denies dizziness Cardiovascular: Cardiovascular: Reports no additional cardiovascular complaints, Denies chest pain and Denies leg edema Respiratory: Respiratory: Reports no additional respiratory complaints, Denies cough and Denies dyspnea Gastrointestinal: Gastrointestinal: Reports as per HPI, Reports no additional gastrointestinal complaints, Reports abdominal pain, Denies melena, Denies bloating, Denies hematochezia, Denies coffee ground emesis, Denies constipation, Denies diarrhea, Reports nausea, Reports vomiting and Denies hematemesis Genitourinary: Genitourinary: Reports no additional female genitourinary complaints Musculoskeletal: Musculoskeletal: Reports no additional musculoskeletal complaints and Denies joint swelling Integumentary/Breasts: Skin/Breast: Reports system reviewed and no additional complaints, except as docu and Denies jaundice Neurologic: Reports system reviewed and no additional complaints, except as documented, Denies headache(s), Denies focal weakness, Denies numbness and Denies tingling PMFSH Past Medical History Medical History Patient denies medical problems Surgical History Surgical History History of bunionectomy of both great toes History of delivery Family History Family History Father Hypertension Mother Anemia Brain cancer Social History Social History Smoking status: Never smoker Alcohol intake: never Substance use: never Lack of Transportation: No Lack of Food: Never True Current Housing: I Have H
[2023-04-07] VITALS (13 sets, daily range): BP systolic 115–143; BP diastolic 54–92; PULSE 52–76; RESP 12–16; TEMP 36.4–36.9; O2SAT 96–100
[2023-04-07] MEDS: SODIUM CHLORIDE 0.9% IV 1,000 ML 125 ML IV CONT (04:19)
[2023-04-07 07:27] LABS: Hemoglobin 11.3 g/dL (12.0-15.0); Mean Corpuscular HGB Conc 31.4 g/dl (32-36); Mean Corpuscular Hemoglobin 27.5 pg (26-34); Mean Corpuscular Volume 87.6 fl (80-100); Mean Platelet Volume 9.6 fl (7.4-10.4); Platelet Count Result 201 k/mm3 (150-375); Red Blood Count 4.11 M/mm3 (4.2-5.4)
[2023-04-07 07:36] LABS: Alanine Aminotransferase 23 U/L (6-35); Albumin Level 3.2 g/dL (3.5-5.1); Alkaline Phosphatase 68 U/L (38-126); Anion Gap 2 mmol/L (8-16); Aspartate Amino Transferase 22 U/L (14-36); Bilirubin,Total 0.8 mg/dL (0.2-1.3); Blood Urea Nitrogen 5 mg/dL (7-17); Calcium 7.8 mg/dL (8.4-10.2); Carbon Dioxide 28 mmol/L (22-30); Chloride 108 mmol/L (98-107); Estimated CRCL calculation 110 ml/min; Estimated Glomerular Filt Rate > 60; Glucose 82 mg/dL (65-110); Potassium 3.7 mmol/L (3.4-5.0); Sodium 138 mmol/L (137-145)
--- NOTE | 2023-04-07 11:28 | WPDANESEPPF ---
Anes - Initial Pre Proc Eval Procedure: Operation Date: 04/07/23 12:30 Proposed Procedures p Laparoscopic Cholecystectomy, Possible Open - Nolan Aguirre DO Date/Time: 04/07/23 11:28 Surgeon: Nolan Aguirre DO Pre Op Diagnosis: Acute Cholecystitis Patient Data Age: 28 Gender: F Height: 1.73 m Weight: 95.3 kg Last Vital Signs Temp 97.7 F 04/07/23 08:00 Pulse 62 04/07/23 08:00 Resp 16 04/07/23 08:00 BP 122/69 04/07/23 08:00 Pulse Ox 100 04/07/23 08:00 O2 Del Method Room Air 04/06/23 20:30 Allergies Allergy/AdvReac Type Severity Reaction Status Date / Time Benzion compund AdvReac Mild Blister Uncoded 10/12/22 17:18 Home Medications Medication Instructions Recorded Confirmed Type ferrous sulfate 27 mg iron tablet 27 mg PO DAILY 10/12/22 04/06/23 History norgestimate 0.25 mg-ethinyl 1 tablet PO DAILY 04/06/23 04/06/23 History estradiol 35 mcg tablet (Estarylla) Laboratory Tests 04/07/23 07:14 WBC 6.0 K/mm3 (4.5-10.0) RBC 4.11 L M/mm3 (4.2-5.4) Hgb 11.3 L g/dL (12.0-15.0) Hct 36.0 L % (37.0-47.0) MCV 87.6 fl (80-100) MCH 27.5 pg (26-34) MCHC 31.4 L g/dl (32-36) RDW 14.0 % (11.5-14.5) Plt Count 201 k/mm3 (150-375) MPV 9.6 fl (7.4-10.4) Sodium 138 mmol/L (137-145) Potassium 3.7 mmol/L (3.4-5.0) Chloride 108 H mmol/L (98-107) Carbon Dioxide 28 mmol/L (22-30) Anion Gap 2 L mmol/L (8-16) BUN 5 L mg/dL (7-17) Creatinine 0.80 mg/dL (0.7-1.0) Estim Creat Clear Calc 110 ml/min Estimated GFR > 60 (59 - ) Glucose 82 mg/dL (65-110) Calcium 7.8 L mg/dL (8.4-10.2) Total Bilirubin 0.8 mg/dL (0.2-1.3) AST 22 U/L (14-36) ALT 23 U/L (6-35) Alkaline Phosphatase 68 U/L (38-126) Total Protein 6.0 L g/dL (6.3-8.2) Albumin 3.2 L g/dL (3.5-5.1) Patient hx anesthesia problems: post op nausea/vomiting Family hx anesthesia problems: none Results Review: All pre-operative results and documents have been reviewed as part of the pre-operative evaluation. [facility] [place] Past Medical History Medical History Patient denies medical problems Surgical History Surgical History History of bunionectomy of both great toes History of delivery Family History Family History Father Hypertension Mother Anemia Brain cancer Social History Social History Smoking status: Never smoker Alcohol intake: never Substance use: never Lack of Transportation: No Lack of Food: Never True Current Housing: I Have Housing Concerned About Future Housing: No Difficulty Paying Gas/Electric Bills: No Difficulty Paying for Meds: No Currently Unemployed: No Education: Bachelor's Degree Difficulty w/ Childcare or Family Care: No Spiritual care concerns: No Anes - Eval Final PreProcedure Day of Procedure 04/07/23 11:28 Patient weight: normal Heart: regular rate and rhythm Lungs: clear to auscultation Airway: Mallampati scale class II Neurological: alert and oriented Last oral intake: >/= 8 hours ASA classification: II Emergent: no Anesthetic plan: proceed Anesthesia type and monitoring: general ETT and standard monitoring Results Review: All pre-operative results and documents have been reviewed as part of the pre-operative evaluation. Informed Consent: The patient's anesthetic plan and its attendant risks and benefits were discussed with the patient/family/POA. Questions were solicited and answers provided to the satisfaction of the patient/family/POA.
[2023-04-07] MEDS: SCOPOLAMINE 1.5 MG PATCH TRANSDERM (11:46)
[2023-04-07] MEDS: LACTATED RINGERS 1,000 ML 30 ML IV CONT (11:47)
--- NOTE | 2023-04-07 13:21 | WPDHPUPDATE1 ---
History and Physical Update Update Date/Time: 04/07/23 13:21 History and Physical has been reviewed, including an updated exam of the patient. There are NO changes in the patient's condition. Risks, benefits, and alternatives have been discussed and questions answered. Patient agrees to proceed with procedure.
[2023-04-07] MEDS: ceFAZolin 2 GM/D5W 50 ML 2 GM/50 ML BAG IVPB (13:28)
[2023-04-07] MEDS: BUPIVACAINE/EPINEPHRINE 0.5% 30 ML VIAL INFILTRATE (13:43)
[2023-04-07] MEDS: fentaNYL CITRATE INJ (*CRX) 100 MCG/2 ML VIAL 25 MCG IV PUSH ×6 (14:52→15:35)
--- NOTE | 2023-04-07 14:57 | W.PM.PROC2 ---
Procedure Note - Detailed Date of Procedure 04/07/23 Pre-op Diagnosis Acute Cholecystitis Post-op Diagnosis Same Procedure Performed Laparoscopic Cholecystectomy Surgeon Nolan Aguirre, DO Anesthesia General and Local (0.5% bupivacaine) Indications This is a 28-year-old woman who presented to the emergency department with epigastric abdominal pain. She was noted to have a slight elevated white blood count and CT showed evidence of cholelithiasis possible cholecystitis. She was admitted for further treatment because she continued having persistent abdominal pain. Discussions were made with the patient about treatment options and decision was made to proceed with laparoscopic cholecystectomy, possible open. Findings Laparoscopic cholecystectomy was performed. The patient's gallbladder appeared tense and dilated. He was aspirated with a laparoscopic aspirating needle to allow to be decompressed enough to grasp. The cystic duct appeared normal in size. The gallbladder did contain few small gallstones. There was some gallbladder wall thickening as well. The gallbladder was removed and sent to the lab for pathology. Description of Procedure Procedure as well as risks, benefits, and alternatives were discussed with patient. Written consent was obtained and placed in chart prior to procedure. The patient was brought back to surgical suite. Patient was placed in supine position on operating table. Time-out was done to confirm patient and procedure. Patient was then intubated by the anesthesia department. Abdomen was prepped and draped in sterile fashion using chlorhexidine prep. 0.5% bupivacaine with epinephrine was infiltrated at each site of incision. A 5 millimeter incision was made near the umbilicus, and a 5 millimeter Optiview trocar was advanced through the abdominal layers under direct visualization. Once inside the abdominal cavity, carbon dioxide was insufflated to create a pneumoperitoneum. The camera was inserted and the abdomen was inspected. No immediate abnormalities were identified. The patient was placed in reverse Trendelenburg position and rotated slightly to the left. An 11 millimeter incision was made in the subxiphoid region, and an 11 millimeter trocar was inserted under direct visualization. Two 5 millimeter incisions were made in the right upper quadrant, and two 5 millimeter trocars were inserted under direct visualization. The gallbladder was identified and grasped at the fundus and retracted superiorly. It was then grasped at the infundibulum retracted laterally. Careful dissection around the neck of the gallbladder was performed using blunt dissection with a [place] grasper and hook electrocautery. The cystic duct was identified, and a window was created behind it. The cystic artery was also identified and a window was created behind it. The critical view of safety was identified, visualizing the cystic duct running directly into the neck of the gallbladder, and the cystic artery running directly into the wall of the gallbladder. A 5 millimeter clip social organization professor was then used to place 2 clips proximally and 1 clip distally on both the cystic duct and cystic artery. They were then both transected using endoscopic scissors. Once safely away from the roxana hepatitis, the gallbladder was dissected free from the liver bed using hook electrocautery. Hemostasis was achieved along the way. The gallbladder was removed completely and then removed through the subxiphoid port. The liver bed was then inspected. Hemostasis appeared adequate, and our clips appeared secure. The area was gently irrigated with sterile saline. No other abnormalities were seen. The patient was flattened out in bed, and 1 final inspection was made around the abdominal cavity. The subxiphoid port was removed, and a Rosalino Sam cone was used to approximate the fascia with an 0-Vicryl simple interrupted suture. The remaining ports were then removed under d
--- NOTE | 2023-04-07 15:11 | PM.DS ---
DS: Admitting Diagnosis Discharge Date 04/07/2023 Admitting Diagnosis Acute cholecystitis DS: Discharge Diagnosis Discharge Diagnosis (1) Acute calculous cholecystitis: Code(s): K80.00 - Calculus of gallbladder with acute cholecystitis without obstruction Status: Acute DS: Summary Hospital Course Reason for hospitalization: Acute cholecystitis Hospital Course: This is a 28-year-old woman who presented to the emergency department with epigastric abdominal pain that started 1 day prior. She has had multiple episodes like this but none this severe and constant. She started having episodes like this after delivering her baby in June. In the emergency department she was found to have evidence of acute cholecystitis. She was admitted to the hospital for further treatment. She continued to have constant pain. Discussions were made with the patient about treatment options and decision was made to proceed with laparoscopic cholecystectomy, possible open. This was done on 04/07/2023. Surgery was uncomplicated and she was returned to the surgical floor postoperatively. Her diet and activity were advanced as tolerated. She was discharged home once her vitals were stable, she was tolerating a low-fat diet, she was ambulating in the halls, and her pain was controlled. Status at Discharge Functional status at discharge: independent ambulation Overall status at discharge: patient is progressing back to baseline Time Spent with Patient Time attestation: Total time spent providing and/or coordinating discharge services: Time spent: Less than 30 minutes Exam Const: General: comfortable and no acute distress Orientation/consciousness: patient oriented x3 HENMT: Head: normocephalic and atraumatic Ears: hearing grossly normal bilaterally Eyes: General: appearance normal, both eyes and all related structures Pupils: Equal, round and reactive pupils present Neck: Neck: normal visual inspection and full ROM Resp: Effort & Inspection: no respiratory distress Auscultation: clear to auscultation bilaterally Cardio: Rate: regular rate Rhythm: regular rhythm Heart sounds: S1 normal heart sound present and S2 normal heart sound present Peripheral pulses: Peripheral pulses 2+ throughout GI: Inspection: non-distended and scar (pfannenstiel ) GI Palp: Yes Soft to palpation, Yes No hepatosplenomegaly present and No Rebound tenderness present Percussion: Yes normal to percussion Auscultation: normal bowel sounds Rectal Exam: deferred Skin: General skin exam: normal color Rashes: no rashes Neuro: General: moves all extremities and no focal motor deficits Speech: normal speech Motor exam (neuro): 5/5 motor strength present throughout Extrem: General: normal to inspection and no edema Psych: Mental Status: mental status grossly normal Affect: normal affect Attitude: cooperative Insight: Good insight present (Psych) Judgement: Good judgement present (Psych) DS: Data Data Completed and Pending Pending studies at discharge: Pending at discharge 04/07/23 13:54 Surgical [PTH] Routine Labs on day of discharge: Labs from last 24 hours 04/07/23 07:14 WBC 6.0 RBC 4.11 L Hgb 11.3 L Hct 36.0 L MCV 87.6 MCH 27.5 MCHC 31.4 L RDW 14.0 Plt Count 201 MPV 9.6 Sodium 138 Potassium 3.7 Chloride 108 H Carbon Dioxide 28 Anion Gap 2 L BUN 5 L Creatinine 0.80 Estim Creat Clear Calc 110 Estimated GFR > 60 Glucose 82 Calcium 7.8 L Total Bilirubin 0.8 AST 22 ALT 23 Alkaline Phosphatase 68 Total Protein 6.0 L Albumin 3.2 L Imaging Radiologist's impression: ITS Impressions Abdomen/Pelvis CT 04/06/23 05:52 Impression: Cholelithiasis. No definite CT evidence for acute cholecystitis. Consider HIDA scan as indicated. Discharge Plan Discharge Attending physician on discharge: Nolan Aguirre Consulting providers: Didier Schumacher; Gissell Gaffney; Vonda Rodríguez
[2023-04-07] MEDS: oxyCODONE HCL (*CRX) 2.5 MG TAB IR PO (17:14)
[2023-04-07] MEDS: LACTATED RINGERS 1,000 ML 100 ML IV CONT (17:15)
--- NOTE | 2023-04-07 18:21 | PC.NURSE ---
Pt's pain controlled with PRN medications. Ambulated per hallway without difficulty. No reports of nausea or pain after dinner. Pt states she feels pretty good. Will discharge per orders.
== END 2023-04-07 18:33 | disposition home or self-care (01) ==
LOC: ANHED 04:49 → ANH3MEDSUR 05:29
PROVIDERS: Admitting Provider Surgery; Emergency Provider Emergency Medicine; PCP Nurse Practitioner; Visit Provider Surgery
PROC: 0FT44ZZ Resection of Gallbladder, Percutaneous Endoscopic Approach (ICD-10-PCS; CPT 47562; principal; 2023-04-07 12:30)
DX: K80.00 Calculus of gallbladder with acute cholecystitis without obstruction (principal)
CPT/HCPCS: 47562; 36415; 74177; 80053; 81003; 81025; 83690; 85025; 85027; 88304; 96361; 96374; 99285; A9270; G0378; J0690; J1100; J2250; J2405; J2704; J3010; J7030; J7120; Q9967

== ENCOUNTER 2023-06-23 20:52 | Inpatient (IN) | payer BC, SELFPAY ==
--- NOTE | ~2023-06-23 | XR_ITS ---
EXAMINATION: XR ERCP DATE: 06/24/2023 17:00 INDICATION: Abdominal pain. TECHNIQUE: 16 spot fluoroscopic images of the right upper quadrant were obtained during endoscopic re trograde cholangiopancreatography (ERCP). Fluoroscopy exposure time was 214 seconds. COMPARISON: CT abdomen and pelvis 04/06/2023 FINDINGS: The endoscope is in the second portion of the duodenum. The wire passes into the pancreatic duct. There is contrast opacification of the common duct, which is normal in size. IMPRESSION: 1. Normal sized common duct status post cholecystectomy. Please refer to the ERCP procedure note for additional details. Reviewed, dictated and finalized at location E. SCOURER IMPRESSION: 1. Normal sized common duct status post cholecystectomy. Please refer to the ER CP procedure note for additional details.
--- NOTE | ~2023-06-23 | MR_ITS ---
EXAMINATION: MR MRCP wo/w con/w 3D wo ind DATE: 06/27/2023 16:55 INDICATION: Jaundice TECHNIQUE: Magnetic resonance imaging (MRI) of the abdomen was performed without and with 19 mL Multi saurabh intravenous contrast. Sequences included coronal T2-weighted SS-FSE, coronal T2-weighted FS SS- FSE, coronal T2-weighted FS FIESTA, axial T2-weighted FS FIESTA, axial T2-weighted FIESTA, sagittal T 2-weighted SS-FSE, axial T1-weighted dual-echo FSPGR, axial T2-weighted SS-FSE, axial T1-weighted LAV A, axial T2-weighted STIR FSE. Thick-slab T2-weighted FRFSE-XL images were obtained for magnetic reso nance cholangiopancreatography (MRCP). Rotating maximum intensity projection 3-D reconstructions of t he volumetric data were created by the technologist. Postcontrast sequences included a time course of axial T1-weighted LAVA. COMPARISON: CT abdomen and pelvis dated 04/06/2023 and ultrasound dated 06/24/2023. FINDINGS: ABDOMEN MRI: Heart size is normal. No pericardial effusion. Small lateral pleural effusions, left greater than rig ht. Dependent lung disease in the bilateral lower lobes most likely associated atelectasis although p neumonia not excludable. Gallbladder is not visualized consistent with recent cholecystectomy. Liver, pancreas, bilateral adrenal glands and left kidney are normal. 6 mm T2 hyperintense nonenhancing cys t in the right kidney. Fluid filling but not frankly dilated and multiple loops of small bowel which could represent a postobstructive ileus. There is retroperitoneal edema in the left and right upper q uadrants. There is a small amount of ascites scattered throughout the abdomen. No loculated abscess s ees. No pathologically enlarged abdominal lymphadenopathy. ABDOMEN MRCP: No intrahepatic biliary ductal dilation. The common hepatic duct is mildly dilated balaji uring up to 9 mm. The common bile duct is also mildly dilated measuring 7 mm. There are no evident st rictures or intraluminal filling defects to suggest choledocholithiasis and the mild dilation is like ly related to the recent cholecystectomy. IMPRESSION: 1. No intrahepatic biliary ductal dilation with mild dilation of the common hepatic and common bile d ucts without evident stricture or obstructing choledocholithiasis. The mild extra hepatic biliary aundrea alec dilation is within normal limits post cholecystectomy. 2. Bilateral abdominal retroperitoneal edema along with small amount of scattered ascites. This could be related to the recent surgery but the retroperitoneal edema could also be seen in the setting of acute interstitial pancreatitis. Correlate with lipase levels. The small amount of ascites along with the provided history of jaundice could be seen with bile leak and could consider HIDA scan for furth er evaluation. 3. Small bilateral pleural effusions, left greater than right with associated dependent lung disease in the bilateral lower lobes which could represent atelectasis or pneumonia. Reviewed, dictated and finalized at location A. STOCK CARETAKER IMPRESSION: 1. No intrahepatic biliary ductal dilation with mild dilation of the common hep atic and common bile ducts without evident stricture or obstructing choledochol ithiasis. The mild extra hepatic biliary ductal dilation is within normal limit s post cholecystectomy. 2. Bilateral abdominal retroperitoneal edema along with small amount of scatter ed ascites. This could be related to the recent surgery but the retroperitoneal edema could also be seen in the setting of acute interstitial pancreatitis. Co rrelate with lipase levels. The small amount of ascites along with the provided history of jaundice could be seen with bile leak and could consider HIDA scan for further evaluation. 3. Small bilateral pleural effusions, left greater than right with associated d ependent l
--- NOTE | ~2023-06-23 | US_ITS ---
US abdomen limited INDICATION: Common bile duct obstruction PROCEDURE: Realtime right upper abdominal ultrasound. COMPARISON: No prior studies for comparison. FINDINGS: The pancreas is normal without focal mass or pancreatic ductal dilation. Liver echotexture is normal without focal mass or intrahepatic biliary dilatation. There is normal directional flow i n the portal vein. Gallbladder is surgically absent. Common bile duct measures 9 mm. No sonographic Neumann's sign. IMPRESSION: 1: Normal limited abdominal ultrasound. Status post cholecystectomy with expected prominence of the b ile duct. Reviewed, dictated and finalized at location B. TANK MISSILEMAN IMPRESSION: 1: Normal limited abdominal ultrasound. Status post cholecystectomy with expect ed prominence of the bile duct.
[2023-06-23 21:03] VITALS: BP 142/80; PULSE 77; RESP 16; TEMP 36.9; O2SAT 100
[2023-06-23 23:24] VITALS: BP 131/81; PULSE 69; RESP 13; O2SAT 100
[2023-06-23] MEDS: SODIUM CHLORIDE 0.9% IV 1,000 ML 999 ML IV CONT (23:31)
[2023-06-23] MEDS: MORPHINE SULFATE (*CRX) 4 MG/ML INJ IV PUSH (23:31)
[2023-06-23] MEDS: ONDANSETRON INJ 4 MG/2 ML VIAL IV PUSH (23:31)
[2023-06-23 23:40] LABS: Basophils Absolute Auto 0.1 K/mm3 (0.0-0.1); Basophils Percent Auto 0.7 % (0.2-1.2); Eosinophils Absolute Auto 0.2 K/mm3 (0-0.3); Eosinophils Percent Auto 3.1 % (0-4.4); Hemoglobin 12.8 g/dL (12.0-15.0); Immature Granulocyte Absolute 0.01 K/mm3 (0.00-0.031); Immature Granulocyte Percent A 0.1 % (0-0.5); Lymphocytes Absolute Auto 1.52 K/mm3 (0.9-3.2); Lymphocytes Percent Auto 21.7 % (18.3-44.2); Mean Corpuscular HGB Conc 31.2 g/dl (32-36); Mean Corpuscular Hemoglobin 27.7 pg (26-34); Mean Corpuscular Volume 88.7 fl (80-100); Mean Platelet Volume 9.8 fl (7.4-10.4); Monocytes Absolute Auto 0.4 K/mm3 (0.1-0.6); Monocytes Percent Auto 5.9 % (2.6-8.5); Neutrophils Absolute Auto 4.8 K/mm3 (1.3-6.7); Neutrophils Percent Auto 68.5 % (45.5-73.1); Platelet Count Result 243 k/mm3 (150-375); Red Blood Count 4.62 M/mm3 (4.2-5.4)
[2023-06-23 23:57] LABS: Alanine Aminotransferase 692 U/L (6-35); Albumin Level 4.4 g/dL (3.5-5.1); Alkaline Phosphatase 332 U/L (38-126); Anion Gap 4 mmol/L (8-16); Aspartate Amino Transferase 367 U/L (14-36); Bilirubin,Total 5.3 mg/dL (0.2-1.3); Blood Urea Nitrogen 9 mg/dL (7-17); Carbon Dioxide 25 mmol/L (22-30); Chloride 103 mmol/L (98-107); Estimated CRCL calculation 124 ml/min; Estimated Glomerular Filt Rate > 60; Glucose 80 mg/dL (65-110); Lipase 116 U/L (23-300); Potassium 3.6 mmol/L (3.4-5.0); Sodium 132 mmol/L (137-145)
[2023-06-24] VITALS (12 sets, daily range): BP systolic 115–151; BP diastolic 60–95; PULSE 65–96; RESP 14–25; TEMP 36.2–37.1; O2SAT 98–100; BMI 32.7
--- NOTE | 2023-06-24 00:14 | ED.ABDPAIN ---
HPI - Abdominal Pain General Chief Complaint: Abdominal Pain Stated Complaint: abdominal pain Time Seen by Provider: 06/23/23 23:06 History of Present Illness HPI narrative: Patient is a 28-year-old female who presents ER with abdominal pain. Located in epigastrium and right upper quadrant. Ongoing intermittently over last couple weeks. She had had her gallbladder removed surgically in April. She is scheduled for follow-up with general surgery tomorrow however she was told that her eyes were becoming yellow she should come to the ER. That is in fact what happened. Patient also noticed that her urine has been darker than typical. She denies fevers or chills or sweats pain. Pain is worse with eating. Related Data Home Medications Medication Instructions Recorded Confirmed ferrous sulfate 27 mg iron tablet 27 mg PO DAILY 10/12/22 06/24/23 norgestimate 0.25 mg-ethinyl 1 tablet PO DAILY 04/06/23 06/24/23 estradiol 35 mcg tablet (Estarylla) Allergies Allergy/AdvReac Type Severity Reaction Status Date / Time Benzion compund AdvReac Mild Blister Uncoded 06/23/23 23:25 Review of Systems Review of Systems: All systems reviewed & are unremarkable except as noted in HPI and below Constitutional: Constitutional: Reports no additional constitutional complaints ENT: Reports system reviewed and no additional complaints, except as documented Cardiovascular: Cardiovascular: Reports no additional cardiovascular complaints Respiratory: Respiratory: Reports no additional respiratory complaints Gastrointestinal: Gastrointestinal: Reports abdominal pain, Denies diarrhea, Reports nausea and Denies vomiting Genitourinary: Genitourinary: Reports no additional female genitourinary complaints [facility] Past Medical History Medical History (Updated 06/24/23 @ 02:19 by Ady Su MD) Patient denies medical problems Surgical History Surgical History (Updated 04/22/23 @ 09:14 by Brandie Moore MA) History of bunionectomy of both great toes History of delivery Hx laparoscopic cholecystectomy Family History Family History Father Hypertension Mother Anemia Brain cancer Social History Social History Smoking status: Never smoker Alcohol intake: current Substance use: never Lack of Transportation: No Lack of Food: Never True Current Housing: I Have Housing Concerned About Future Housing: No Difficulty Paying Gas/Electric Bills: No Difficulty Paying for Meds: No Currently Unemployed: No Education: Bachelor's Degree Difficulty w/ Childcare or Family Care: No Spiritual care concerns: No Exam Narrative: GENERAL: Well-appearing, well-nourished, and in no acute distress. HEAD: Normocephalic, atraumatic. EYES: PERRL and EOMI. Scleral icterus noted bilaterally. ENT: Mucous membranes moist. CHEST: Clear to auscultation. No respiratory distress. HEART: Regular rate and rhythm. Normal peripheral pulses. ABDOMEN: Soft, Mild tenderness palpation of the epigastrium right upper quadrant without guarding, nondistended. EXTREMITIES: Normal range of motion. No edema. SKIN: Warm, dry, no rash. NEURO: Alert and oriented x3. PSYCH: Normal mood and affect. Course Course Emergency Course: patient will be admitted to the hospitalist service. She will be kept NPO. We will have general surgery consult tomorrow. Vital Signs Vital signs: Vital Signs Temperature 98.4 F 06/23/23 21:03 Pulse Rate 77 06/23/23 21:03 Respiratory Rate 16 06/23/23 21:03 Blood Pressure 142/80 H 06/23/23 21:03 Pulse Oximetry 100 06/23/23 21:03 Oxygen Delivery Room Air 06/23/23 21:03 Temperature 98.4 F 06/23/23 21:03 Pulse Rate 73 06/24/23 01:34 Respiratory Rate 16 06/24/23 01:34 Blood Pressure 123/69 06/24/23 01:34 Pulse Oximetry 100 06/24/23 01:3
--- NOTE | 2023-06-24 01:13 | PC.NURSE ---
Attempted to call report 2 times. No answer.
--- NOTE | 2023-06-24 01:52 | ADMGEN ---
This patient, Radhika Abbasi, was admitted to Medical Room 348-. Patient/family oriented to hospital policies and general routines including ID bracelet, bed and alarms, visiting hours, pain management, procedures, bathroom and other care routines, personal items, smoking policy, room service/diet, and visiting hours. Information on how to activate the Rapid Response Team has been discussed. Patient/Family are encouraged to report perceived risks to care and to ask questions if they do not understand what they are told or what they should do.
[2023-06-24] MEDS: SODIUM CHLORIDE 0.9% IV 1,000 ML 125 ML IV CONT ×3 (02:02→23:40)
[2023-06-24] MEDS: ONDANSETRON INJ 4 MG/2 ML VIAL IV PUSH ×3 (05:43→17:48)
--- NOTE | 2023-06-24 11:49 | PM.IMHP ---
H&P: HPI History of Present Illness Date/Time: 06/24/23 11:49 Chief Complaint: abdominal pain Narrative: Patient is a 28-year-old female admitted from the ER with abdominal pain. She reported is was located in epigastrium and right upper quadrant which has been ongoing intermittently over last couple weeks.? She had had her gallbladder removed surgically on 04/10/23.?She is scheduled for follow-up with general surgery today, but came to the ER when her eyes started to yellow.?Patient also noticed that her urine has been darker than typical starting 2 days ago.?She denies fevers or chills or sweats pain.?Pain is worse with eating. She has had n/v intermittently since last Tuesday. Her eyes are not yellow this morning on exam, and her skin is not jaundice. She denies any itching or rashes. Her pain is mild this morning, without N/V. She denies any changes to her medication, which is control and iron. GI consulted, and ERCP is scheduled for this afternoon. Her bilirubin is elevated to 5.3, liver enzymes elevated, but lipase WNL. Review of Systems Review of Systems: All systems reviewed & are unremarkable except as noted in HPI and below PMFSH Past Medical History Medical History Patient denies medical problems Surgical History Surgical History History of bunionectomy of both great toes History of delivery Hx laparoscopic cholecystectomy Family History Family History Father Hypertension Mother Anemia Brain cancer Social History Social History Smoking status: Never smoker Alcohol intake: current Substance use: never Lack of Transportation: No Lack of Food: Never True Current Housing: I Have Housing Concerned About Future Housing: No Difficulty Paying Gas/Electric Bills: No Difficulty Paying for Meds: No Currently Unemployed: No Education: Bachelor's Degree Difficulty w/ Childcare or Family Care: No Spiritual care concerns: No Meds Home Medications and Allergies Home Medications Medication Instructions Recorded Confirmed Type ferrous sulfate 27 mg iron tablet 27 mg PO DAILY 10/12/22 06/24/23 History norgestimate 0.25 mg-ethinyl 1 tablet PO DAILY 04/06/23 06/24/23 History estradiol 35 mcg tablet (Estarylla) Allergies Allergy/AdvReac Type Severity Reaction Status Date / Time Benzion compund AdvReac Mild Blister Uncoded 06/23/23 23:25 Vital Signs Vital Signs - 24 hr 06/23/23 21:03 06/23/23 23:24 06/24/23 01:34 Temperature 98.4 F Pulse Rate 77 69 73 Respiratory Rate 16 13 16 Blood Pressure 142/80 H 131/81 123/69 Pulse Oximetry 100 100 100 Oxygen Delivery Room Air 06/24/23 06:00 06/24/23 08:00 Temperature 97.7 F Pulse Rate 71 Respiratory Rate 20 Blood Pressure 130/60 Pulse Oximetry 98 Oxygen Delivery Room Air Exam Narrative: GENERAL: Well-appearing, well-nourished, and in no acute distress. HEAD: Normocephalic, atraumatic. EYES: PERRL and EOMI. Scleral icterus noted bilaterally. ENT: Mucous membranes moist. CHEST: Clear to auscultation. No respiratory distress. HEART: RRR. No murmurs. Normal peripheral pulses. ABDOMEN: Soft, Mild tenderness palpation of the epigastrium right upper quadrant without guarding, nondistended. No rebound tenderness. EXTREMITIES: Normal range of motion. No edema. SKIN: Warm, dry, no rash. NEURO: Alert and oriented x3. PSYCH: Normal mood and affect. Pleasant and cooperative. H&P: Results Labs Labs: Short CBC 06/23/23 Range/Units 23:36 WBC 7.0 (4.5-10.0) K/mm3 Hgb 12.8 (12.0-15.0) g/dL Hct 41.0 (37.0-47.0) % Plt Count 243 (150-375) k/mm3 [facility] 06/23/23 23:36 Sodium 132 L Potassium 3.6 Chloride 103 Carbon Dioxide 25 BUN 9 Creat
[2023-06-24 13:23] LABS: Glucose Point of Care 61 mg/dl (65-105)
[2023-06-24] MEDS: DEXTROSE 50% 25 GM/50 ML SYRINGE IV PUSH (13:25)
[2023-06-24 14:04] LABS: Glucose Point of Care 100 mg/dl (65-105)
[2023-06-24] MEDS: LACTATED RINGERS 1,000 ML 150 ML IV CONT (14:32)
--- NOTE | 2023-06-24 14:48 | WPDANESEPPF ---
Anes - Initial Pre Proc Eval Procedure: Operation Date: 06/24/23 16:30 Proposed Procedures p Endoscopic Retro Cholangiopancreatogram - Yamil Maynard MD Date/Time: 06/24/23 14:48 Surgeon: Kentrell Palmer MD Pre Op Diagnosis: Suspected Biliary Obstruction, Transaminitis, Hype Patient Data Age: 28 Gender: F Height: 1.73 m Weight: 97.6 kg Last Vital Signs Temp 97.1 F L 06/24/23 14:34 Pulse 66 06/24/23 14:34 Resp 20 06/24/23 14:34 BP 121/63 06/24/23 14:34 Pulse Ox 100 06/24/23 14:34 O2 Del Method Room Air 06/24/23 14:34 Allergies Allergy/AdvReac Type Severity Reaction Status Date / Time Benzion compund AdvReac Mild Blister Uncoded 06/24/23 14:32 Home Medications Medication Instructions Recorded Confirmed Type ferrous sulfate 27 mg iron tablet 27 mg PO DAILY 10/12/22 06/24/23 History norgestimate 0.25 mg-ethinyl 1 tablet PO DAILY 04/06/23 06/24/23 History estradiol 35 mcg tablet (Estarylla) Laboratory Tests 06/23/23 06/24/23 06/24/23 23:36 13:14 14:02 WBC 7.0 K/mm3 (4.5-10.0) RBC 4.62 M/mm3 (4.2-5.4) Hgb 12.8 g/dL (12.0-15.0) Hct 41.0 % (37.0-47.0) MCV 88.7 fl (80-100) MCH 27.7 pg (26-34) MCHC 31.2 L g/dl (32-36) RDW 14.0 % (11.5-14.5) Plt Count 243 k/mm3 (150-375) MPV 9.8 fl (7.4-10.4) Immature Gran % (Auto) 0.1 % (0-0.5) Neut % (Auto) 68.5 % (45.5-73.1) Lymph % (Auto) 21.7 % (18.3-44.2) Rhea % (Auto) 5.9 % (2.6-8.5) Eos % (Auto) 3.1 % (0-4.4) Baso % (Auto) 0.7 % (0.2-1.2) Lymph # (Auto) 1.52 K/mm3 (0.9-3.2) Rhea # (Auto) 0.4 K/mm3 (0.1-0.6) Eos # (Auto) 0.2 K/mm3 (0-0.3) Baso # (Auto) 0.1 K/mm3 (0.0-0.1) Abs Immat Gran (auto) 0.01 K/mm3 (0.00-0.031) Absolute Neuts (auto) 4.8 K/mm3 (1.3-6.7) Absolute Nucleated RBC 0.0 K/mm3 (0.0-0.012) Nucleated RBC % 0.0 % (0.0-0.2) Sodium 132 L mmol/L (137-145) Potassium 3.6 mmol/L (3.4-5.0) Chloride 103 mmol/L (98-107) Carbon Dioxide 25 mmol/L (22-30) Anion Gap 4 L mmol/L (8-16) BUN 9 mg/dL (7-17) Creatinine 0.70 mg/dL (0.7-1.0) Estim Creat Clear Calc 124 ml/min Estimated GFR > 60 (59 - ) Glucose 80 mg/dL (65-110) POC Capillary Glucose 61 L mg/dl 100 mg/dl (65-105) (65-105) Calcium 9.0 mg/dL (8.4-10.2) Total Bilirubin 5.3 H mg/dL (0.2-1.3) AST 367 H U/L (14-36) ALT 692 H U/L (6-35) Alkaline Phosphatase 332 H U/L (38-126) Total Protein 8.0 g/dL (6.3-8.2) Albumin 4.4 g/dL (3.5-5.1) Lipase 116 U/L (23-300) Patient hx anesthesia problems: none Family hx anesthesia problems: none Results Review: All pre-operative results and documents have been reviewed as part of the pre-operative evaluation. [facility] Past Medical History Medical History Patient denies medical problems Surgical History Surgical History History of bunionectomy of both great toes History of delivery Hx laparoscopic cholecystectomy Family History Family History Father Hypertension Mother Anemia Brain cancer Social History Social History Smoking status: Never smoker Alcohol intake: current Substance use: never Lack of Transportation: No Lack of Food: Never True Current Housing: I Have Housing Concerned About Future Housing: No Difficulty Paying Gas/Electric Bills: No Difficulty Paying for Meds:
--- NOTE | 2023-06-24 14:59 | WPDGICN ---
Assessment and Plan Assessment and plan (1) Bile duct obstruction: Code(s): K83.1 - Obstruction of bile duct Status: Acute Assessment and Plan: signs and symptoms are consistent with common bile duct obstruction. Will order an ultrasound for further clarification (2) Hyperbilirubinemia: Code(s): E80.6 - Other disorders of bilirubin metabolism Status: Acute Assessment and Plan: I explained her that this is obstructive jaundice into a picture of the bile duct and how it stone can cause obstruction which results in back up bile into the blood stream, the skin and subsequently the dark urine that she has noticed. (3) Cholelithiasis with acute cholecystitis: Qualifiers: Biliary obstruction: without biliary obstruction Qualified Code(s): K80.00 - Calculus of gallbladder with acute cholecystitis without obstruction Code(s): K80.00 - Calculus of gallbladder with acute cholecystitis without obstruction Status: Acute Assessment and Plan: He had an uneventful cholecystectomy 2 months ago Plan I will schedule for ERCP. I discussed with her the procedure I explained the technique of removing stones. I describe sphincterotomy. I also did Explain to her possible risks such as bleeding or perforation. I discussed the possibility of pancreatitis as approximately 3% and that it could be severe and could result in prolonged hospitalization. GI Consult Note Consult date/time: 06/24/23 14:59 HPI: Radhika Abbasi is a 28 year old female with undergone a cholecystectomy recently. A week ago she developed recurrent episodes of upper abdominal pain similar to those that she had prior to her surgery. Then she noticed her urine becoming darker about 2 days ago and her eyes have become yellow. She had contacted her surgeon's office who told her that if she thought she was turning yellow to go to the emergency room. Subsequently she was admitted. She has been found to have elevated liver enzymes and bilirubin. Bilirubin is 5.3. AST and ALT are 367 is 692 respectively. Also alkaline phosphatase is elevated at 332. Lipase is normal as of yesterday. She has no history of liver disease. Her liver function studies were normal when she had her cholecystectomy. Review of Systems Review of Systems: All systems reviewed & are unremarkable except as noted in HPI and below PMFSH Past Medical History Medical History Patient denies medical problems Surgical History Surgical History History of bunionectomy of both great toes History of delivery Hx laparoscopic cholecystectomy Family History Family History Father Hypertension Mother Anemia Brain cancer Social History Social History Smoking status: Never smoker Alcohol intake: current Substance use: never Lack of Transportation: No Lack of Food: Never True Current Housing: I Have Housing Concerned About Future Housing: No Difficulty Paying Gas/Electric Bills: No Difficulty Paying for Meds: No Currently Unemployed: No Education: Bachelor's Degree Difficulty w/ Childcare or Family Care: No Spiritual care concerns: No Meds Home Medications and Allergies Home Medications Medication Instructions Recorded Confirmed Type ferrous sulfate 27 mg iron tablet 27 mg PO DAILY 10/12/22 06/24/23 History norgestimate 0.25 mg-ethinyl 1 tablet PO DAILY 04/06/23 06/24/23 History estradiol 35 mcg tablet (Estarylla) Allergies Allergy/AdvReac Type Severity Reaction Status Date / Time Benzion compund AdvReac Mild Blister Uncoded 06/24/23 14:32 Vital Signs Vital Signs - 24 hr 06/23/23 21:03 06/23/23 23:24 06/24/23 01:34 Temperature 36.9 C Pulse Rate 77 69 73 Resp
[2023-06-24] MEDS: INDOMETHACIN 50 MG SUPP.RECT RECTAL (15:18)
[2023-06-24 16:52] LABS: Glucose Point of Care 85 mg/dl (65-105)
[2023-06-24] MEDS: SIMETHICONE 80 MG TAB.CHEW PO (23:35)
[2023-06-24] MEDS: MORPHINE SULFATE (*CRX) 2 MG/ML INJ IV PUSH (23:37)
[2023-06-25] MEDS: ONDANSETRON INJ 4 MG/2 ML VIAL IV PUSH ×2 (01:56→06:37)
[2023-06-25] MEDS: MORPHINE SULFATE (*CRX) 2 MG/ML INJ IV PUSH ×3 (01:56→07:22)
[2023-06-25] MEDS: SIMETHICONE 80 MG TAB.CHEW PO (05:07)
[2023-06-25 06:00] VITALS: BP 141/85; PULSE 71; RESP 21; TEMP 36.4; O2SAT 100
[2023-06-25 06:05] LABS: Hematocrit 42.3 % (37.0-47.0); Hemoglobin 13.1 g/dL (12.0-15.0); Mean Corpuscular Hemoglobin 27.9 pg (26-34); Mean Corpuscular Volume 90.2 fl (80-100); Mean Platelet Volume 9.7 fl (7.4-10.4); Platelet Count Result 236 k/mm3 (150-375); Red Blood Count 4.69 M/mm3 (4.2-5.4); Red Cell Distribution Width 13.8 % (11.5-14.5); White Blood Count 8.7 K/mm3 (4.5-10.0)
[2023-06-25 06:20] LABS: Alanine Aminotransferase 380 U/L (6-35); Albumin Level 3.5 g/dL (3.5-5.1); Alkaline Phosphatase 284 U/L (38-126); Anion Gap 5 mmol/L (8-16); Aspartate Amino Transferase 164 U/L (14-36); Bilirubin,Total 5.6 mg/dL (0.2-1.3); Blood Urea Nitrogen 6 mg/dL (7-17); Calcium 8.2 mg/dL (8.4-10.2); Carbon Dioxide 22 mmol/L (22-30); Chloride 108 mmol/L (98-107); Estimated CRCL calculation 126 ml/min; Estimated Glomerular Filt Rate > 60; Glucose 132 mg/dL (65-110); Potassium 3.9 mmol/L (3.4-5.0); Sodium 135 mmol/L (137-145)
[2023-06-25] MEDS: SODIUM CHLORIDE 0.9% IV 1,000 ML 125 ML IV CONT (06:37)
--- NOTE | 2023-06-25 08:48 | WPDGIPROGNO ---
Progress Note: A&P Assessment and Plan (1) Bile duct obstruction: Code(s): K83.1 - Obstruction of bile duct Status: Acute Assessment and Plan: signs and symptoms are consistent with common bile duct obstruction. Will order an ultrasound for further clarification ERCP done yesterday with debris and sludge in the distal common bile duct. Cannulation was somewhat difficult and therefore temporary pancreatic stent was placed. No large stones seen on cholangiogram but black great like material was produced with balloon sweep. (2) Hyperbilirubinemia: Code(s): E80.6 - Other disorders of bilirubin metabolism Status: Acute Assessment and Plan: I explained her that this is obstructive jaundice into a picture of the bile duct and how it stone can cause obstruction which results in back up bile into the blood stream, the skin and subsequently the dark urine that she has noticed. Bilirubin remains elevated today. Likely edema from this ERCP is a factor. I would suspect should drop quickly now. (3) Cholelithiasis with acute cholecystitis: Qualifiers: Biliary obstruction: without biliary obstruction Qualified Code(s): K80.00 - Calculus of gallbladder with acute cholecystitis without obstruction Code(s): K80.00 - Calculus of gallbladder with acute cholecystitis without obstruction Status: Acute Assessment and Plan: She had an uneventful cholecystectomy 2 months ago Plan I will schedule for ERCP. I discussed with her the procedure I explained the technique of removing stones. I describe sphincterotomy. I also did Explain to her possible risks such as bleeding or perforation. I discussed the possibility of pancreatitis as approximately 3% and that it could be severe and could result in prolonged hospitalization. 05/26/2023 she is having pain and likely has developed some pancreatitis secondary to the procedure. Will keep on a clear liquid diet. I will increase her morphine dose to try to give her more relief. will add pantoprazole because heartburn, And bitter discomfort in throat from vomiting. Increased Zofran dose . Subjective Date/time seen: she has had more pain since her procedure. I explained her that there was some difficulty cannulating the ampulla, And likely has pancreatitis. She gets relief for some time with the morphine but it seems to wear off fast. She is afebrile. Exam Const: General: cooperative and healthy appearing Orientation/consciousness: patient oriented x3 HENMT: Head: normal to inspection Ears: hearing grossly normal bilaterally Mouth: Yes Normal oral and palatal mucosa present Eyes: General: appearance normal, both eyes and all related structures Sclera: scleral abnormality bilateral other ( icterus) Neck: Neck: normal visual inspection Chest: Chest palpation & inspection: normal inspection of the chest Resp: Effort & Inspection: normal respiratory effort Auscultation: clear to auscultation bilaterally Cardio: Rate: regular rate Rhythm: regular rhythm GI: Inspection: normal to inspection GI Palp: Yes abdominal tenderness ( Generalized), Yes Soft to palpation and No Guarding due to palpation present (GI) Auscultation: normal bowel sounds Skin: General skin exam: normal color and no jaundice Neuro: General: patient oriented x3 Speech: normal speech Objective Data Vital Signs Vital Signs: Vital Signs - 24 hr 06/24/23 14:34 06/24/23 14:00 06/24/23 16:27 Temperature 36.2 C L 36.9 C 37.1 C Pulse Rate 66 74 87 Respiratory Rate 20 14 18 Blood Pressure 121/63 115/77 124/65 Pulse Oximetry 100 98 100 Oxygen Delivery Room Air Simple Face Mask Oxygen Flow Rate 10 06/24/23 16:37 06/24/23 16:47 06/24/23 16:57 Temperature Pulse Rate 96 75 75 Respiratory Rate 25 H 18 18 Blood Pressure 147/94 H 146/95 H 144/95 H Pulse Oximetry 100 100 100 Oxygen Delivery Nasal Cannula Nasal Cannula Oxygen F
[2023-06-25] MEDS: PANTOPRAZOLE SODIUM IV 40 MG VIAL IV PUSH ×2 (09:04→20:06)
[2023-06-25] MEDS: DOCUSATE SODIUM 100 MG CAPSULE PO ×2 (09:04→20:06)
[2023-06-25] MEDS: MORPHINE SULFATE (*CRX) 4 MG/ML INJ IV PUSH ×4 (10:04→22:35)
[2023-06-25] MEDS: ONDANSETRON INJ 4 MG/2 ML VIAL 8 MG IV PUSH ×2 (10:05→16:07)
[2023-06-25] MEDS: SODIUM CHLORIDE 0.9% IV 1,000 ML 175 ML IV CONT ×2 (13:06→18:41)
--- NOTE | 2023-06-25 13:28 | PM.IMPN ---
Progress Note: A&P Assessment and Plan (1) Bile duct obstruction: Code(s): K83.1 - Obstruction of bile duct Status: Acute Assessment and Plan: RUQ US normal GI consulted - ERCP reported debris and sludge in the distal common bile duct. Cannulation was somewhat difficult and therefore temporary pancreatic stent was placed. No large stones seen on cholangiogram but black great like material was produced with balloon sweep. possibly pancreatitis now as she has developed increasing pain, N/V overnight clear liquid diet as tolerated (2) Hyperbilirubinemia: Code(s): E80.6 - Other disorders of bilirubin metabolism Status: Acute Assessment and Plan: Bilirubin 5.6 this morning, no jaundice or yellowing on exam this morning will continue to trend and monitor RUQ US normal (3) Transaminitis: Code(s): R74.01 - Elevation of levels of liver transaminase levels Status: Acute Assessment and Plan: AST/ALT is 164/380 respectively this am, improved from admission will continue to monitor Subjective Date/time seen: 06/25/23 13:29 Interval history: Patient had a rough night last night. She initially felt better after the ERCP, but then she started having severe pain and nausea/vomiting. GI following, she may have developed pancreatitis. Will trial clears as tolerated, continue fluids and increased pain meds, zofran for comfort. PPI added as well. Will continue to monitor. Review of Systems Review of Systems: All systems reviewed & are unremarkable except as noted in HPI and below Exam Narrative: GENERAL: Well-appearing, well-nourished, and in no acute distress. HEAD: Normocephalic, atraumatic. EYES: PERRL and EOMI. Scleral icterus noted bilaterally. ENT: Mucous membranes moist. CHEST: Clear to auscultation. No respiratory distress. HEART: RRR. No murmurs. Normal peripheral pulses. ABDOMEN: Soft, Mild tenderness palpation of the epigastrium right upper quadrant without guarding, nondistended. No rebound tenderness. BS present. EXTREMITIES: Normal range of motion. No edema. SKIN: Warm, dry, no rash. NEURO: Alert and oriented x3. PSYCH: Normal mood and affect. Objective Data Vital Signs Vital Signs: Vital Signs - 24 hr 06/24/23 14:34 06/24/23 14:00 06/24/23 16:27 Temperature 97.1 F L 98.5 F 98.7 F Pulse Rate 66 74 87 Respiratory Rate 20 14 18 Blood Pressure 121/63 115/77 124/65 Pulse Oximetry 100 98 100 Oxygen Delivery Room Air Simple Face Mask Oxygen Flow Rate 10 06/24/23 16:37 06/24/23 16:47 06/24/23 16:57 Temperature Pulse Rate 96 75 75 Respiratory Rate 25 H 18 18 Blood Pressure 147/94 H 146/95 H 144/95 H Pulse Oximetry 100 100 100 Oxygen Delivery Nasal Cannula Nasal Cannula Oxygen Flow Rate 5 2 06/24/23 17:07 06/24/23 17:17 06/24/23 17:27 Temperature Pulse Rate 68 69 65 Respiratory Rate 18 20 20 Blood Pressure 151/92 H 141/91 H 144/91 H Pulse Oximetry 100 100 100 Oxygen Delivery Oxygen Flow Rate 06/24/23 22:00 06/25/23 06:00 06/25/23 08:00 Temperature 97.6 F 97.5 F L Pulse Rate 76 71 Respiratory Rate 16 21 H Blood Pressure 141/74 H 141/85 H Pulse Oximetry 100 100 Oxygen Delivery Room Air Oxygen Flow Rate Intake/Output Intake/Output: Intake & Output 06/22/23 06/23/23 06/24/23 06/25/23 23:59 23:59 23:59 23:59 Intake Total 3600 2250 Balance 3600 2250 Meds/Results Medications: Active Medications Generic Name Dose Route Start Last Admin Trade Name Freq PRN Reason Stop Dose Admin Dextrose 12.5 gm 06/24/23 13:18 06/24/23 13:25 Dextrose 50% 25 Gm/50 Ml Syringe IV PUSH 12.5 gm PRN PRN Administration Hypoglycemia Protocol Docusate Sodium 100 mg 06/25/23 09:00 06/25/23 09:04 Docusate Sodium 100 Mg Capsule PO 100 mg Q12HR TIA Administration Glucagon 1 mg 06/24/23 13:18 Glucagon For Inj 1 Mg Vial IM PRN PRN Hypoglycemia Protoc
--- NOTE | 2023-06-25 13:33 | WPDANESPN ---
Anes - Prog Note Post-Op Date/Time: 06/25/23 13:33 Cardiovascular status: normal Respiratory status: normal Airway patency: baseline Mental status: baseline Post-Op hydration status: other (pt on clear liquids, persistent nausea & vomiting refractory to treatment. ) Vital Signs: Last Vital Signs Temp 97.5 F L 06/25/23 06:00 Pulse 71 06/25/23 06:00 Resp 21 H 06/25/23 06:00 BP 141/85 H 06/25/23 06:00 Pulse Ox 100 06/25/23 06:00 O2 Del Method Room Air 06/25/23 08:00 O2 Flow Rate 2 06/24/23 16:47 Pain Score (VAS): 3 I/O: Intake & Output 06/24/23 06/25/23 06/25/23 23:59 07:59 15:59 Intake Total 1600 1250 1000 Balance 1600 1250 1000 Laboratory Tests 06/25/23 05:50 06/25/23 05:50 06/24/23 06/24/23 06/25/23 14:02 16:50 05:50 WBC 8.7 RBC 4.69 Hgb 13.1 Hct 42.3 MCV 90.2 MCH 27.9 MCHC 31.0 L RDW 13.8 Plt Count 236 MPV 9.7 Sodium 135 L Potassium 3.9 Chloride 108 H Carbon Dioxide 22 Anion Gap 5 L BUN 6 L Creatinine 0.70 Estim Creat Clear Calc 126 Estimated GFR > 60 Glucose 132 H POC Capillary Glucose 100 85 Calcium 8.2 L Total Bilirubin 5.6 H Direct Bilirubin 2.0 H AST 164 H ALT 380 H Alkaline Phosphatase 284 H Total Protein 6.0 L Albumin 3.5 Post-procedural complaints: nausea and vomiting Patient Feedback: Patient satisfied with anesthetic care.
[2023-06-25] MEDS: SCOPOLAMINE 1.5 MG PATCH TRANSDERM (13:55)
[2023-06-25 15:20] VITALS: BP 141/71; PULSE 73; RESP 18; TEMP 36.8; O2SAT 100
[2023-06-25 20:00] VITALS: PULSE 73; RESP 18; O2SAT 100
[2023-06-25 21:45] VITALS: BP 144/80; PULSE 85; RESP 14; TEMP 36.8; O2SAT 100
[2023-06-26] MEDS: SODIUM CHLORIDE 0.9% IV 1,000 ML 175 ML IV CONT ×3 (00:24→11:54)
[2023-06-26] MEDS: MORPHINE SULFATE (*CRX) 4 MG/ML INJ IV PUSH ×5 (03:16→21:10)
[2023-06-26 06:00] VITALS: BP 125/65; PULSE 98; RESP 16; TEMP 36.9; O2SAT 97
[2023-06-26 06:43] LABS: Alanine Aminotransferase 281 U/L (6-35); Albumin Level 3.1 g/dL (3.5-5.1); Alkaline Phosphatase 282 U/L (38-126); Anion Gap 5 mmol/L (8-16); Aspartate Amino Transferase 91 U/L (14-36); Bilirubin,Total 5.2 mg/dL (0.2-1.3); Blood Urea Nitrogen 2 mg/dL (7-17); Calcium 7.6 mg/dL (8.4-10.2); Carbon Dioxide 24 mmol/L (22-30); Chloride 103 mmol/L (98-107); Estimated CRCL calculation 208 ml/min; Estimated Glomerular Filt Rate > 60; Glucose 97 mg/dL (65-110); Potassium 3.4 mmol/L (3.4-5.0); Sodium 132 mmol/L (137-145)
[2023-06-26] MEDS: DOCUSATE SODIUM 100 MG CAPSULE PO ×2 (08:48→21:14)
[2023-06-26] MEDS: PANTOPRAZOLE SODIUM IV 40 MG VIAL IV PUSH ×2 (08:48→21:14)
[2023-06-26 08:52] LABS: Basophils Percent Auto 0.3 % (0.2-1.2); Eosinophils Absolute Auto 0.1 K/mm3 (0-0.3); Eosinophils Percent Auto 1.2 % (0-4.4); Hematocrit 34.8 % (37.0-47.0); Immature Granulocyte Absolute 0.04 K/mm3 (0.00-0.031); Immature Granulocyte Percent A 0.4 % (0-0.5); Lymphocytes Absolute Auto 0.65 K/mm3 (0.9-3.2); Lymphocytes Percent Auto 6.7 % (18.3-44.2); Mean Corpuscular HGB Conc 31.6 g/dl (32-36); Mean Corpuscular Hemoglobin 28.3 pg (26-34); Mean Corpuscular Volume 89.5 fl (80-100); Mean Platelet Volume 9.8 fl (7.4-10.4); Monocytes Absolute Auto 0.4 K/mm3 (0.1-0.6); Monocytes Percent Auto 3.9 % (2.6-8.5); Neutrophils Absolute Auto 8.5 K/mm3 (1.3-6.7); Neutrophils Percent Auto 87.5 % (45.5-73.1); Platelet Count Result 192 k/mm3 (150-375); Red Blood Count 3.89 M/mm3 (4.2-5.4); Red Cell Distribution Width 14.4 % (11.5-14.5); White Blood Count 9.7 K/mm3 (4.5-10.0)
[2023-06-26] MEDS: SIMETHICONE 80 MG TAB.CHEW PO (09:05)
[2023-06-26 10:13] LABS: Lipase 23771 U/L (23-300)
--- NOTE | 2023-06-26 13:03 | WPDGIPROGNO ---
Progress Note: A&P Assessment and Plan (1) Bile duct obstruction: Code(s): K83.1 - Obstruction of bile duct Status: Acute Assessment and Plan: signs and symptoms are consistent with common bile duct obstruction. Will order an ultrasound for further clarification ERCP done yesterday with debris and sludge in the distal common bile duct. Cannulation was somewhat difficult and therefore temporary pancreatic stent was placed. No large stones seen on cholangiogram but black grit like material was produced with balloon sweep. (2) Hyperbilirubinemia: Code(s): E80.6 - Other disorders of bilirubin metabolism Status: Acute Assessment and Plan: I explained her that this is obstructive jaundice into a picture of the bile duct and how it stone can cause obstruction which results in back up bile into the blood stream, the skin and subsequently the dark urine that she has noticed. Bilirubin remains elevated today. Likely edema from this ERCP is a factor. I would suspect should drop quickly now. (3) Cholelithiasis with acute cholecystitis: Qualifiers: Biliary obstruction: without biliary obstruction Qualified Code(s): K80.00 - Calculus of gallbladder with acute cholecystitis without obstruction Code(s): K80.00 - Calculus of gallbladder with acute cholecystitis without obstruction Status: Acute Assessment and Plan: She had an uneventful cholecystectomy 2 months ago Plan I will schedule for ERCP. I discussed with her the procedure I explained the technique of removing stones. I describe sphincterotomy. I also did Explain to her possible risks such as bleeding or perforation. I discussed the possibility of pancreatitis as approximately 3% and that it could be severe and could result in prolonged hospitalization. 05/26/2023 she is having pain and likely has developed some pancreatitis secondary to the procedure. Will keep on a clear liquid diet. I will increase her morphine dose to try to give her more relief. will add pantoprazole because heartburn, And bitter discomfort in throat from vomiting. Increased Zofran dose . 05/27 transaminases have come down to 91. Bilirubin still elevated at 5. Likely due to edema at the area of the ampulla. Was advanced diet as tolerated. After discharge she will be on a low-fat diet and take pancreatic supplements for few weeks. Subjective Date/time seen: 06/26/23 13:03 she remains uncomfortable with diffuse abdominal pain. It has improved however. She has not needed morphine since early this morning. The nausea and vomiting has also subsided. She understands that opiates can cause nausea. she is getting her appetite and would like to try eating more than just clear liquids. Exam Const: General: cooperative and healthy appearing Orientation/consciousness: patient oriented x3 HENMT: Head: normal to inspection Ears: hearing grossly normal bilaterally Mouth: Yes Normal oral and palatal mucosa present Eyes: General: appearance normal, both eyes and all related structures Sclera: scleral abnormality bilateral other ( icterus) Neck: Neck: normal visual inspection Chest: Chest palpation & inspection: normal inspection of the chest Resp: Effort & Inspection: normal respiratory effort Auscultation: clear to auscultation bilaterally Cardio: Rate: regular rate Rhythm: regular rhythm GI: Inspection: normal to inspection GI Palp: Yes abdominal tenderness ( Generalized), Yes Soft to palpation and No Guarding due to palpation present (GI) Auscultation: normal bowel sounds Skin: General skin exam: normal color and no jaundice Neuro: General: patient oriented x3 Speech: normal speech Objective Data Vital Signs Vital Signs: Vital Signs - 24 hr 06/25/23 15:20 06/25/23 20:00 06/25/23 21:45 Temperature 36.8 C 36.8 C Pulse Rate 73 73 85 Respiratory Rate 18 18 14 Blood Pressure 141/71 H 144/80 H Pulse Ox
--- NOTE | 2023-06-26 13:38 | PM.IMPN ---
Progress Note: A&P Assessment and Plan (1) Bile duct obstruction: Code(s): K83.1 - Obstruction of bile duct Status: Acute Assessment and Plan: RUQ US normal GI consulted - ERCP reported debris and sludge in the distal common bile duct. Cannulation was somewhat difficult and therefore temporary pancreatic stent was placed. No large stones seen on cholangiogram but black great like material was produced with balloon sweep[place] [id number] overnight clear liquid diet, will advance as tolerated supportive antiemetics, pain control, fluids (2) Hyperbilirubinemia: Code(s): E80.6 - Other disorders of bilirubin metabolism Status: Acute Assessment and Plan: Bilirubin 5.0 will continue to trend and monitor RUQ US normal (3) Transaminitis: Code(s): R74.01 - Elevation of levels of liver transaminase levels Status: Acute Assessment and Plan: AST/ALT improving, 91/281 respectively this am will continue to monitor Subjective Date/time seen: 06/26/23 13:38 Interval history: Patient is reporting improvement in her pain, although she is quite tender to mild palpation of lower abdomen. She has tolerated clears since last night, might be ready to advance. GI following, as she seems to have developed pancreatitis. Continue supportive care. Will continue to monitor. Lipase elevated today, plan for d/c when pain controlled and tolerating diet and cleared by GI. Review of Systems Review of Systems: All systems reviewed & are unremarkable except as noted in HPI and below Exam Narrative: GENERAL: Well-appearing, well-nourished, and in no acute distress. HEAD: Normocephalic, atraumatic. EYES: PERRL and EOMI. Scleral icterus noted bilaterally. ENT: Mucous membranes moist. CHEST: Clear to auscultation. No respiratory distress. HEART: RRR. No murmurs. Normal peripheral pulses. ABDOMEN: Soft, tenderness palpation of the lower abdomen without guarding, nondistended. No rebound tenderness. BS present. EXTREMITIES: Normal range of motion. No edema. SKIN: Warm, dry, no rash. NEURO: Alert and oriented x3. PSYCH: Normal mood and affect. Objective Data Vital Signs Vital Signs: Vital Signs - 24 hr 06/25/23 15:20 06/25/23 20:00 06/25/23 21:45 Temperature 98.3 F 98.3 F Pulse Rate 73 73 85 Respiratory Rate 18 18 14 Blood Pressure 141/71 H 144/80 H Pulse Oximetry 100 100 100 Oxygen Delivery Room Air 06/26/23 06:00 06/26/23 08:00 Temperature 98.5 F Pulse Rate 98 Respiratory Rate 16 Blood Pressure 125/65 Pulse Oximetry 97 Oxygen Delivery Room Air Intake/Output Intake/Output: Intake & Output 06/23/23 06/24/23 06/25/23 06/26/23 23:59 23:59 23:59 23:59 Intake Total 3600 3650 3640 Output Total 50 Balance 3600 3600 3640 Meds/Results Medications: Active Medications Generic Name Dose Route Start Last Admin Trade Name Freq PRN Reason Stop Dose Admin Hydrocodone Bitart/Acetaminophen 1 tab 06/26/23 07:39 Hydrocodone/Acetaminophen (*Crx) 5-325 Mg Tablet PO Q4H PRN Pain Rated 4-6 Dextrose 12.5 gm 06/24/23 13:18 06/24/23 13:25 Dextrose 50% 25 Gm/50 Ml Syringe IV PUSH 12.5 gm PRN PRN Administration Hypoglycemia Protocol Docusate Sodium 100 mg 06/25/23 09:00 06/26/23 08:48 Docusate Sodium 100 Mg Capsule PO 100 mg Q12HR TIA Administration Glucagon 1 mg 06/24/23 13:18 Glucagon For Inj 1 Mg Vial IM PRN PRN Hypoglycemia Protocol Glucose 15 gm 06/24/23 13:18 Glucose Oral Gel 15 Gm Of Glucse In 37.5 Gm Tube PO PRN PRN Hypoglycemia Protocol Sodium Chloride 1,000 mls @ 150 mls/hr 06/24/23 00:30 06/26/23 13:11 Normal Saline Iv IV CONT 150 mls/hr .[id number] TIA Infusion Dextrose 1,000 mls @ 100 mls/hr 06/24/23 13:18 Dextrose 5% 1,000 Ml IVPB PRN PRN Hypoglycemia Protocol Morphine Sulfate 4 mg
[2023-06-26 14:00] VITALS: BP 134/70; PULSE 99; RESP 18; TEMP 36.9; O2SAT 95
[2023-06-26] MEDS: SODIUM CHLORIDE 0.9% IV 1,000 ML 150 ML IV CONT (18:20)
[2023-06-26 21:11] VITALS: BP 133/74; PULSE 95; RESP 16; TEMP 37.1; O2SAT 99
[2023-06-27] MEDS: MORPHINE SULFATE (*CRX) 4 MG/ML INJ IV PUSH ×5 (01:25→23:42)
[2023-06-27] MEDS: HYDROcodone/acetaminophen (*CRX) 5-325 MG TABLET 1 TAB PO (05:55)
[2023-06-27 06:11] VITALS: BP 124/68; PULSE 86; RESP 16; TEMP 36.6; O2SAT 93
[2023-06-27 06:13] LABS: Alanine Aminotransferase 217 U/L (6-35); Alkaline Phosphatase 335 U/L (38-126); Anion Gap 2 mmol/L (8-16); Aspartate Amino Transferase 69 U/L (14-36); Bilirubin,Total 6.1 mg/dL (0.2-1.3); Calcium 7.8 mg/dL (8.4-10.2); Carbon Dioxide 30 mmol/L (22-30); Chloride 100 mmol/L (98-107); Estimated CRCL calculation 171 ml/min; Estimated Glomerular Filt Rate > 60; Glucose 120 mg/dL (65-110); Potassium 3.2 mmol/L (3.4-5.0); Sodium 132 mmol/L (137-145)
[2023-06-27 07:31] LABS: Blood Urea Nitrogen < 2 mg/dL (7-17)
[2023-06-27] MEDS: DOCUSATE SODIUM 100 MG CAPSULE PO ×2 (08:19→19:40)
[2023-06-27] MEDS: PANTOPRAZOLE SODIUM IV 40 MG VIAL IV PUSH ×2 (08:19→19:40)
[2023-06-27 09:05] LABS: Lipase 10959 U/L (23-300)
--- NOTE | 2023-06-27 12:13 | WPDGIPROGNO ---
Progress Note: A&P Assessment and Plan (1) Bile duct obstruction: Code(s): K83.1 - Obstruction of bile duct Status: Acute Assessment and Plan: signs and symptoms are consistent with common bile duct obstruction. Will order an ultrasound for further clarification ERCP done yesterday with debris and sludge in the distal common bile duct. Cannulation was somewhat difficult and therefore temporary pancreatic stent was placed. No large stones seen on cholangiogram but black grit like material was produced with balloon sweep. (2) Hyperbilirubinemia: Code(s): E80.6 - Other disorders of bilirubin metabolism Status: Acute Assessment and Plan: I explained her that this is obstructive jaundice into a picture of the bile duct and how it stone can cause obstruction which results in back up bile into the blood stream, the skin and subsequently the dark urine that she has noticed. Bilirubin remains elevated today. Likely edema from this ERCP is a factor. I would suspect should drop quickly now. I explained that the elevated bilirubin concerns me that there could still be some obstruction her bile duct. I will schedule for MRCP today. (3) Cholelithiasis with acute cholecystitis: Qualifiers: Biliary obstruction: without biliary obstruction Qualified Code(s): K80.00 - Calculus of gallbladder with acute cholecystitis without obstruction Code(s): K80.00 - Calculus of gallbladder with acute cholecystitis without obstruction Status: Acute Assessment and Plan: She had an uneventful cholecystectomy 2 months ago Plan I will schedule for ERCP. I discussed with her the procedure I explained the technique of removing stones. I describe sphincterotomy. I also did Explain to her possible risks such as bleeding or perforation. I discussed the possibility of pancreatitis as approximately 3% and that it could be severe and could result in prolonged hospitalization. 06/25/2023 she is having pain and likely has developed some pancreatitis secondary to the procedure. Will keep on a clear liquid diet. I will increase her morphine dose to try to give her more relief. will add pantoprazole because heartburn, And bitter discomfort in throat from vomiting. Increased Zofran dose . 06/26 transaminases have come down to 91. Bilirubin still elevated at 5. Likely due to edema at the area of the ampulla. Was advanced diet as tolerated. After discharge she will be on a low-fat diet and take pancreatic supplements for few weeks. 06/27/2023 I will advance her to a low-fat diet but also want to get MRCP today to ensure that there is not still a calculus or something else obstructing her common bile duct, given the elevated bilirubin. Subjective Date/time seen: 06/27/23 12:13 She slept some during the night. She has not used morphine since last night but did have a hydrocodone just a little while ago. She is no longer vomiting. She is willing to try eating more and hopefully home soon. HShe states the pain has improved significantly. I told her that I am concerned however that the bilirubin is still high in fact today is 6.1. If possible that a another stone is present at the end of the bile duct, perhaps traveling down from intrahepatic ducts. At any rate will get MRCP this morning. Exam Const: General: cooperative and healthy appearing Orientation/consciousness: patient oriented x3 HENMT: Head: normal to inspection Ears: hearing grossly normal bilaterally Mouth: Yes Normal oral and palatal mucosa present Eyes: General: appearance normal, both eyes and all related structures Sclera: scleral abnormality bilateral other ( icterus) Neck: Neck: normal visual inspection Chest: Chest palpation & inspection: normal inspection of the chest Resp: Effort & Inspection: normal respiratory effort Auscultation: clear to auscultation bilaterally Cardio: Rate: regular rate Rhyth
[2023-06-27 14:00] VITALS: BP 130/72; PULSE 89; RESP 16; TEMP 36.4; O2SAT 95
--- NOTE | 2023-06-27 15:13 | PM.IMPN ---
Progress Note: A&P Assessment and Plan (1) Bile duct obstruction: Code(s): K83.1 - Obstruction of bile duct Status: Acute Assessment and Plan: RUQ US normal GI consulted - ERCP reported debris and sludge in the distal common bile duct. Cannulation was somewhat difficult and therefore temporary pancreatic stent was placed. No large stones seen on cholangiogram but black great like material was produced with balloon sweep. GI to do MRCP today as bilirubin continues to elevate at 6 today likely pancreatitis [place] [id number] from jump yesterday tolerated full liquid diet last night, will advance as tolerated supportive antiemetics, pain control, fluids (2) Hyperbilirubinemia: Code(s): E80.6 - Other disorders of bilirubin metabolism Status: Acute Assessment and Plan: Bilirubin 6.1 trending up will continue to trend and monitor MRCP today for evaluation (3) Transaminitis: Code(s): R74.01 - Elevation of levels of liver transaminase levels Status: Acute Assessment and Plan: AST/ALT improving, will continue to monitor Subjective Date/time seen: 06/27/23 15:13 Interval history: Patient is reporting improvement in her pain, although she is quite tender to mild palpation of upper abdomen. She is still requiring pain medication and Sopalamine patch. GI following, she seems to have developed pancreatitis. Bilirubin continues to rise, she will have an MRCP today to evaluate. Continue supportive care. Continue to advance diet from full liquid and tolerated and appropriate. Lipase trending down but still elevated, plan for d/c when pain controlled and tolerating diet and cleared by GI. Review of Systems Review of Systems: All systems reviewed & are unremarkable except as noted in HPI and below Exam Narrative: GENERAL: Well-appearing, well-nourished, and in no acute distress. HEAD: Normocephalic, atraumatic. EYES: PERRL and EOMI. Scleral icterus noted bilaterally. ENT: Mucous membranes moist. CHEST: Clear to auscultation. No respiratory distress. HEART: RRR. No murmurs. Normal peripheral pulses. ABDOMEN: Soft, tenderness palpation of the upper abdomen without guarding, nondistended. No rebound tenderness. BS present. EXTREMITIES: Normal range of motion. No edema. SKIN: Warm, dry, no rash. NEURO: Alert and oriented x3. PSYCH: Normal mood and affect. Objective Data Vital Signs Vital Signs: Vital Signs - 24 hr 06/26/23 21:11 06/27/23 06:11 06/27/23 08:00 Temperature 98.8 F 97.9 F Pulse Rate 95 86 Respiratory Rate 16 16 Blood Pressure 133/74 124/68 Pulse Oximetry 99 93 Oxygen Delivery Room Air 06/27/23 14:00 Temperature 97.6 F Pulse Rate 89 Respiratory Rate 16 Blood Pressure 130/72 Pulse Oximetry 95 Oxygen Delivery Intake/Output Intake/Output: Intake & Output 06/24/23 06/25/23 06/26/23 06/27/23 23:59 23:59 23:59 23:59 Intake Total 3600 3650 5280 500 Output Total 50 Balance 3600 3600 5280 500 Meds/Results Medications: Active Medications Generic Name Dose Route Start Last Admin Trade Name Freq PRN Reason Stop Dose Admin Hydrocodone Bitart/Acetaminophen 1 tab 06/26/23 07:39 06/27/23 05:55 Hydrocodone/Acetaminophen (*Crx) 5-325 Mg Tablet PO 1 tab Q4H PRN Administration Pain Rated 4-6 Dextrose 12.5 gm 06/24/23 13:18 06/24/23 13:25 Dextrose 50% 25 Gm/50 Ml Syringe IV PUSH 12.5 gm PRN PRN Administration Hypoglycemia Protocol Docusate Sodium 100 mg 06/25/23 09:00 06/27/23 08:19 Docusate Sodium 100 Mg Capsule PO 100 mg Q12HR TIA Administration Glucagon 1 mg 06/24/23 13:18 Glucagon For Inj 1 Mg Vial IM PRN PRN Hypoglycemia Protocol Glucose 15 gm 06/24/23 13:18 Glucose Oral Gel 15 Gm Of Glucse In 37.5 Gm Tube PO PRN PRN Hypoglycemia Protocol Sodium Chloride 1,000 mls @ 150 mls/hr 06/24/23 00:30 06/17
[2023-06-27] MEDS: LIPASE/AMYLASE/PROTEASE 12,000 UNITS CAP 2 CAP PO (17:09)
[2023-06-27] MEDS: SCOPOLAMINE 1.5 MG PATCH TRANSDERM (17:13)
[2023-06-27 21:45] VITALS: BP 123/69; PULSE 91; RESP 18; TEMP 36.9; O2SAT 95
[2023-06-28] MEDS: MORPHINE SULFATE (*CRX) 4 MG/ML INJ IV PUSH (03:56)
[2023-06-28 04:21] VITALS: BP 131/71; PULSE 96; RESP 16; TEMP 37.2; O2SAT 93
[2023-06-28 06:08] LABS: Hematocrit 33.2 % (37.0-47.0); Hemoglobin 10.5 g/dL (12.0-15.0); Mean Corpuscular HGB Conc 31.6 g/dl (32-36); Mean Corpuscular Hemoglobin 28.3 pg (26-34); Mean Corpuscular Volume 89.5 fl (80-100); Mean Platelet Volume 10.1 fl (7.4-10.4); Platelet Count Result 182 k/mm3 (150-375); Red Blood Count 3.71 M/mm3 (4.2-5.4); Red Cell Distribution Width 14.4 % (11.5-14.5)
[2023-06-28 06:21] LABS: Alanine Aminotransferase 178 U/L (6-35); Albumin Level 3.3 g/dL (3.5-5.1); Alkaline Phosphatase 306 U/L (38-126); Anion Gap 8 mmol/L (8-16); Aspartate Amino Transferase 47 U/L (14-36); Bilirubin,Total 3.6 mg/dL (0.2-1.3); Blood Urea Nitrogen 4 mg/dL (7-17); Calcium 8.2 mg/dL (8.4-10.2); Carbon Dioxide 26 mmol/L (22-30); Chloride 99 mmol/L (98-107); Estimated CRCL calculation 208 ml/min; Estimated Glomerular Filt Rate > 60; Glucose 103 mg/dL (65-110); Lipase 1271 U/L (23-300); Potassium 3.1 mmol/L (3.4-5.0); Sodium 133 mmol/L (137-145)
--- NOTE | 2023-06-28 07:14 | WPDGIPROGNO ---
Progress Note: A&P Assessment and Plan (1) Bile duct obstruction: Code(s): K83.1 - Obstruction of bile duct Status: Acute Assessment and Plan: signs and symptoms are consistent with common bile duct obstruction. Will order an ultrasound for further clarification ERCP done yesterday with debris and sludge in the distal common bile duct. Cannulation was somewhat difficult and therefore temporary pancreatic stent was placed. No large stones seen on cholangiogram but black grit like material was produced with balloon sweep. MRCP shows normal caliber bile duct with no calculi or other obstruction. (2) Hyperbilirubinemia: Code(s): E80.6 - Other disorders of bilirubin metabolism Status: Acute Assessment and Plan: I explained her that this is obstructive jaundice into a picture of the bile duct and how it stone can cause obstruction which results in back up bile into the blood stream, the skin and subsequently the dark urine that she has noticed. Bilirubin remains elevated today. Likely edema from this ERCP is a factor. I would suspect should drop quickly now. I explained that the elevated bilirubin concerns me that there could still be some obstruction her bile duct. I will schedule for MRCP today. Her brother has Gilbert syndrome. I noticed that her bilirubin the last few days is 100% indirect, unconjugated. Although she had a normal bilirubin in the past she certainly does have Gilbert's syndrome. I explained her that this is a relative deficiency of glucuronyl transferase and enzyme responsible for converting bilirubin from indirect to direct (3) Cholelithiasis with acute cholecystitis: Qualifiers: Biliary obstruction: without biliary obstruction Qualified Code(s): K80.00 - Calculus of gallbladder with acute cholecystitis without obstruction Code(s): K80.00 - Calculus of gallbladder with acute cholecystitis without obstruction Status: Acute Assessment and Plan: She had an uneventful cholecystectomy 2 months ago (4) Gilbert's syndrome: Code(s): E80.4 - Gilbert syndrome Status: Acute Assessment and Plan: I discussed with her the physiology of Gilbert's syndrome in the relative deficiency of the enzyme responsible for converting bilirubin to direct She was concerned that this may have implications for her health. I explained that is not a matter of any significant concern. It does not indicate or portend any liver disease and should not affect her health in general. She believes that her brother has Gilbert's syndrome Plan I will schedule for ERCP. I discussed with her the procedure I explained the technique of removing stones. I describe sphincterotomy. I also did Explain to her possible risks such as bleeding or perforation. I discussed the possibility of pancreatitis as approximately 3% and that it could be severe and could result in prolonged hospitalization. 06/25/2023 she is having pain and likely has developed some pancreatitis secondary to the procedure. Will keep on a clear liquid diet. I will increase her morphine dose to try to give her more relief. will add pantoprazole because heartburn, And bitter discomfort in throat from vomiting. Increased Zofran dose . 06/26 transaminases have come down to 91. Bilirubin still elevated at 5. Likely due to edema at the area of the ampulla. Was advanced diet as tolerated. After discharge she will be on a low-fat diet and take pancreatic supplements for few weeks. 06/27/2023 I will advance her to a low-fat diet but also want to get MRCP today to ensure that there is not still a calculus or something else obstructing her common bile duct, given the elevated bilirubin. 06/28/2023 she can go home on a low-fat diet, and medication for pain. I would like to see her in the office in 2 or 3 weeks. Will recheck her LFTs in 2 weeks. I do not think she will need to take an enzyme supplement
[2023-06-28] MEDS: LIPASE/AMYLASE/PROTEASE 12,000 UNITS CAP 2 CAP PO ×2 (08:44→12:11)
[2023-06-28] MEDS: DOCUSATE SODIUM 100 MG CAPSULE PO (08:44)
[2023-06-28] MEDS: PANTOPRAZOLE SODIUM IV 40 MG VIAL IV PUSH (08:44)
[2023-06-28] MEDS: HYDROcodone/acetaminophen (*CRX) 5-325 MG TABLET 1 TAB PO (08:49)
[2023-06-28] MEDS: POTASSIUM CHLORIDE INJ 40 MEQ in SODIUM CHLORIDE 0.9% IV 500 ML 130 MEQ IVPB (09:44)
--- NOTE | 2023-06-28 12:44 | PM.DS ---
DS: Admitting Diagnosis Discharge Date 06/28/23 Admitting Diagnosis bile duct obstruction post surgery DS: Discharge Diagnosis Discharge Diagnosis (1) Bile duct obstruction: Code(s): K83.1 - Obstruction of bile duct Status: Acute Assessment and Plan: RUQ US normal GI consulted - ERCP reported debris and sludge in the distal common bile duct. Cannulation was somewhat difficult and therefore temporary pancreatic stent was placed. No large stones seen on cholangiogram but black great like material was produced with balloon sweep. GI MRCP normal, believes she has Gilbert syndrome which explains elevated indirect bilirubin and inability to convert to direct likely secondary pancreatitis resolving Lipase trending down now at 1271 tolerating low fat diet to continue at home d/c with pain control to follow up with GI in 2 weeks and have repeat liver enzymes check (2) Hyperbilirubinemia: Code(s): E80.6 - Other disorders of bilirubin metabolism Status: Acute Assessment and Plan: Bilirubin elevation related to Gilbert syndrome diagnosed by GI inability to convert indirect, to direct no direct relation to ability of liver to function no additional intervention at this time (3) Transaminitis: Code(s): R74.01 - Elevation of levels of liver transaminase levels Status: Acute Assessment and Plan: AST/ALT improving at 47/178 f/u with GI in 2 weeks for recheck DS: Summary Hospital Course Hospital Course: Patient is reporting improvement in her pain, denying pain with palpation. GI following, will f/u in 2 weeks and recheck liver enzymes. Tolerating low fat diet, will d/c on low fat diet for now. GI cleared and she is medically stable for d/c today with pain control, diet instructions and 2 week follow up with GI. Potassium 3.1 this morning, replaced with IV KCL, will recheck at 2 pm and can d/c after if improved. Status at Discharge Functional status at discharge: independent ambulation Overall status at discharge: patient is progressing back to baseline Time Spent with Patient Time attestation: Total time spent providing and/or coordinating discharge services: Exam Narrative: GENERAL: Well-appearing, well-nourished, and in no acute distress. HEAD: Normocephalic, atraumatic. EYES: PERRL and EOMI. . ENT: Mucous membranes moist. CHEST: Clear to auscultation. No respiratory distress. HEART: RRR. No murmurs. Normal peripheral pulses. ABDOMEN: Soft, non-tender palpation of the abdomen without guarding, nondistended. No rebound tenderness. BS present. EXTREMITIES: Normal range of motion. No edema. SKIN: Warm, dry, no rash. NEURO: Alert and oriented x3. PSYCH: Normal mood and affect. DS: Data Data Completed and Pending Labs on day of discharge: Labs from last 24 hours 06/28/23 05:56 WBC 10.0 RBC 3.71 L Hgb 10.5 L Hct 33.2 L MCV 89.5 MCH 28.3 MCHC 31.6 L RDW 14.4 Plt Count 182 MPV 10.1 Sodium 133 L Potassium 3.1 L Chloride 99 Carbon Dioxide 26 Anion Gap 8 BUN 4 L Creatinine 0.40 L Estim Creat Clear Calc 208 Estimated GFR > 60 Glucose 103 Calcium 8.2 L Total Bilirubin 3.6 H Direct Bilirubin 0.0 AST 47 H ALT 178 H Alkaline Phosphatase 306 H Total Protein 6.0 L Albumin 3.3 L Lipase 1271 H Discharge Plan Discharge Attending physician on discharge: Rohith Candelaria Consulting providers: Yamil Maynard Discharging Clinician: Lauryn Nicole Anticipated Discharge Date/Time: 06/28/23 11:29 Patient Disposition: Home, Self-Care Activity: as tolerated Diet: low fat Discharge Instructions: Continue to follow a low fat diet. You can take an over the counter stool softener or Miralax as needed for constipation. Follow up with GI in 2 weeks, the doctor will recheck your liver enzymes. Patient Instructions: Antibiotic Form, Low Fat Diet (DC), ERCP (Endoscopic Retrograde Cholangiop
[2023-06-28 14:14] LABS: Potassium 3.7 mmol/L (3.4-5.0)
== END 2023-06-28 14:53 | disposition home or self-care (01) | DRG 446 ==
LOC: ANHED 06-24 00:30 → ANH3MED 06-24 01:06
PROVIDERS: Internal Medicine Gastroenterology; Admitting Provider Internal Medicine; Emergency Provider Emergency Medicine; PCP Family Medicine; Visit Provider Nurse Practitioner
PROC: 0FC98ZZ Extirpation of Matter from Common Bile Duct, Via Natural or Artificial Opening Endoscopic (ICD-10-PCS; CPT 43260; principal; 2023-06-24 16:30)
DX: K83.1 Obstruction of bile duct (principal); Z90.49 Acquired absence of other specified parts of digestive tract; R74.01 Elevation of levels of liver transaminase levels; E80.6 Other disorders of bilirubin metabolism
CPT/HCPCS: 36415; 74183; 74329; 76376; 76705; 80048; 80053; 80076; 82948; 83690; 84132; 85025; 85027; 96361; 96374; 96375; 99285; A9270; A9577; C2625; C9113; G0378; J0330; J1100; J1610; J2270; J2405; J2704; J3480; J7030; J7040; J7120; Q9966

== ENCOUNTER 2023-07-07 12:41 | Outpatient (CLI) | payer BC, SELFPAY ==
[2023-07-07 10:44] LABS: Alanine Aminotransferase 37 U/L (6-35); Alkaline Phosphatase 167 U/L (38-126); Aspartate Amino Transferase 27 U/L (14-36)
== END 2023-07-07 12:42 | disposition home or self-care (01) ==
LOC: ANHLAB 10-17 12:41
PROVIDERS: PCP Family Medicine; Visit Provider Internal Medicine Gastroenterology
DX: R74.01 Elevation of levels of liver transaminase levels (principal)
CPT/HCPCS: 36415; 80076

== ENCOUNTER 2024-04-04 08:47 | Emergency (ER) | payer BC, SELFPAY ==
[2024-04-04 08:58] VITALS: BP 117/64; PULSE 66; RESP 16; TEMP 36.5; O2SAT 99
--- NOTE | 2024-04-04 09:03 | ED.URI ---
HPI - URI/Sore Throat General Chief Complaint: Upper Respiratory Infection Stated Complaint: SORE THROAT Time Seen by Provider: 04/04/24 09:04 Source: patient, RN notes reviewed and old records reviewed Mode of arrival: ambulatory Limitations: no limitations History of Present Illness HPI Narrative: 29 year old female who presents to [facility] care with complaints of sore throat for 5 days with fevers on Tuesday and Tuesday when illness started. Patient reports some ear discomfort but mild, reports some nasal congestion but not draining,and some chest congestion, denies any present body aches or any acute cough or any dyspnea. Patient reports that she has been taking Ibuprofen for her symptoms and to treat fever at start of illness. Patient reports that at onset of illness headache and body aches which have resolved MD elicited complaint: fever (for 2 days), sore throat and other (nasal congestion and ear pain) Onset (ago): day(s) (5) Pain scale (0-10): 8 Able to tolerate fluids by mouth: Yes Exacerbating factors: swallowing Treatments prior to arrival: ibuprofen Related Data Home Medications Medication Instructions Recorded Confirmed norgestimate 0.25 mg-ethinyl 1 tablet PO DAILY 04/06/23 04/04/24 estradiol 35 mcg tablet (Estarylla) Allergies Allergy/AdvReac Type Severity Reaction Status Date / Time Benzion compund AdvReac Mild Blister Uncoded 04/04/24 09:04 Review of Systems Review of Systems: CONSTITUTIONAL: Reports malaise, chills, sweats, fever for 2 days at start of illness EYES: Denies visual changes, redness, or discharge. ENT: Reports no rhinorrhea,positive congestion,no sinus pain, positive otalgia and positive for sore throat. CARDIOVASCULAR: Denies chest pain, palpitations, or edema. RESPIRATORY: Reports cough.? Denies dyspnea. GASTROINTESTINAL: Denies abdominal pain, nausea, vomiting, diarrhea SKIN: Denies rash or itching. MUSCULOSKELETAL: Denies present myalgia. NEUROLOGIC: Denies present headache. All systems reviewed & are unremarkable except as noted in HPI and below PMFSH Past Medical History Medical History Anemia Anxiety Bile duct obstruction Gilbert's syndrome Surgical History Surgical History History of bunionectomy of both great toes History of delivery 07/02/2022 Hx laparoscopic cholecystectomy 03/2023 Family History Family History Father Hypertension Mother Anemia Brain cancer Social History Social History Smoking status: Never smoker Alcohol intake: current Substance use: never Do You Feel Safe in your Home?: Yes Lack of Transportation: No Lack of Food: Never True Current Housing: I Have Housing Concerned About Future Housing: No Difficulty Paying Gas/Electric Bills: No Difficulty Paying for Meds: No Currently Unemployed: No Education: Bachelor's Degree Difficulty w/ Childcare or Family Care: No Living arrangements: with family Occupation/Education: occupation Gender identity (if verbalized by the patient): Female Sexual Orientation (if Verbalized by the Patient): Straight or Heterosexual Spiritual care concerns: No Comments At time of signature, agree with nursing past medical, surgical, social and family history. There is no relevant family history pertinent to the presenting complaint Exam Narrative: GENERAL: Well-appearing, well-nourished, and in no acute distress. HEAD: Normocephalic EYES: PERRLA, conjunctivae clear ENT: Nares clear, turbinates edematous and erythematous, clear discharge. Mucous membranes moist. TM pearly [place] with dull light reflex bilaterally; no tragal tenderness. Oropharynx erythematous without lesions. Tonsils not enlarged and without exudate, no hali
[2024-04-04 09:13] LABS: EDSTREPNEGPOS1 Negative (Negative)
== END 2024-04-04 09:25 | disposition home or self-care (01) ==
PROVIDERS: Emergency Provider Registered Nurse; PCP Family Medicine
DX: J06.9 Acute upper respiratory infection, unspecified (principal); J02.9 Acute pharyngitis, unspecified; E80.4 Gilbert syndrome
CPT/HCPCS: 87081; 87880; 99213; G0463

== ENCOUNTER 2025-03-02 09:49 | Outpatient (CLI) | payer BC, SELFPAY ==
--- OUTSIDE RECORDS SUMMARY | 2025-03-02 09:55 | XMS_ITS | Clinical Summary ---
Author Organization [facility] Address [address] [place] [id number] Care Team Providers Care Drive Away Driver Name Role Phone Pepper Valenzuela NP Primary Care Provider [phone] Allergies Active Allergy Reactions Criticality Noted Date Comments Benzoin Rash Low 12/29/2022 Rash blister type Medications norgestimate-eth inyl estradiol (ORTHO-CYCLEN) 0.25-35 MG-MCG tablet Take 1 tablet by mouth daily. 11/15/2022 Active ferrous sulfate, 65 mg elemental, 325 (65 FE) MG tablet Take 1 tablet (325 mg total) by mouth daily with breakfast. Active Active Problems Problem Noted Date Diagnosed Date Food sensitivity with gastrointestinal symptoms 12/29/2022 Diarrhea, unspecified type 12/29/2022 Obesity (BMI 30.0-34.9) 12/29/2022 Family History Medical History Relation Comments Cancer Maternal Aunt Breast Cancer Cancer Maternal Grandmother Colon Cance r Cancer Maternal Uncle Colon Cancer Cancer Mother Tumor in Brain Relation Status Comments Maternal Aunt Maternal Grandmother Maternal Uncle Mother Social History Tobacco Use Types Packs/Day Years Used Date Smoking Tobacco: Never Passive Smoke Exposure: Never Smokeless Tobacco: Never Tobacco Cessation:Counseling Given: No Alcohol Use Standard Drinks/Week Comments Yes 1 (1 standard drink = 0.6 oz pur e alcohol) PHQ-2 Answer Date Recorded Patient Health Questionnaire-2 Score 1 12/29/2022 Comments No Sex and Gender Information Value Date Recorded Sex Assigned at Not on file Legal Sex Female 8:08 AM CDT Gender Identity Not on file Sexual Orientation Not on file Last Filed Vital Signs Vital Sign Reading Time Taken Comments Blood Pressure 110/66 12/29/2022 10:06 AM CDT Pulse 73 12/29/2022 10:06 AM CDT Temperature 36.5 C (97.7 F) 12/29/2022 10:06 AM CDT Respiratory Rate 18 12/29/2022 10:0 6 AM CDT Oxygen Saturation 97% 12/29/2022 10: 06 AM CDT Inhaled Oxygen Concentration - - Weight 100.9 kg (222 lb 6.4 oz) 023 10:06 AM CDT Height 171.5 cm (5' 7.5) 12/29/2022 10 :06 AM CDT Body Mass Index 34.32 12/29/2022 10:06 AM CDT Plan of Treatment Health Maintenance Due Date Last Done Comments Cervical Cancer Screening Pa p Smear (Age 30 to 64) Every 3 Years 1995 Annual Physical 1998 Hepatitis C 2013 DTaP, Tdap and Td Vaccines ( 1 - Tdap) 2014 Hepatitis B Vaccines (1 of 3 - 19+ 3-dose series) 2014 HPV Vaccines (1 - 3-dose SCD M series) 2022 COVID-19 Vaccine (1 - 2023-2 5 season) 2024 PHQ-2 (Physician [place]) 07/18/2024 Cervical Cancer Screening Pa p with HPV Testing (Age 30 to 64) Every 5 Years 2025 Cervical Cancer Screening with HPV 2025 Meningococcal B Vaccine Aged Out No l onger eligible based on patient's age to complete this topic Meningococcal Vaccine Aged Out No murali gladis eligible based on patient's age to complete this topic Pneumococcal Vaccine: Pediat rics (0 to 5 Years) and At-Risk Patients (6 to 49 Years) Aged Out No longer eligible b ased on patient's age to complete this topic RSV Immunizations Under 20 Months Aged Out No longer eligible based on patient's age to complete this topic Insurance [facility] Care Teams Drive Away Driver Relationship Specialty Start Date End Date Pepper Valenzuela NP [address] [place] [address] [place] [address] PCP - General NURSE PRACTITIONER 12/29/22
[2025-03-02 10:18] LABS: Hematocrit 31.3 % (37.0-47.0); Hemoglobin 10.1 g/dL (12.0-15.0); Immature Granulocyte Percent A 0.5 % (0-0.5); Lymphocytes Absolute Auto 1.36 K/mm3 (0.9-3.2); Mean Corpuscular HGB Conc 32.3 g/dl (32-36); Mean Corpuscular Hemoglobin 27.1 pg (26-34); Mean Corpuscular Volume 83.9 fl (80-100); Nucleated Red Blood Cells Absolute Auto 0.000 K/mm3 (0.0-0.012); Nucleated Red Blood Cells Perc 0.0 % (0.0-0.2); Platelet Count Result 250 k/mm3 (150-375); Red Blood Count 3.73 M/mm3 (4.2-5.4); White Blood Count 7.4 K/mm3 (4.5-10.0)
[2025-03-02 11:00] LABS: Syphilis IgG/IgM Antibody Non-Reactive (Nonreactive)
== END 2025-03-02 09:50 | disposition home or self-care (01) ==
LOC: ANHLAB 09:54
PROVIDERS: PCP Family Medicine; Visit Provider Obstetrics & Gynecology
DX: Z01.818 Encounter for other preprocedural examination (principal)
CPT/HCPCS: 36415; 85025; 86593; 86850; 86900; 86901

== ENCOUNTER 2025-03-04 09:57 | Inpatient (IN) | payer BC, SELFPAY ==
[2025-03-04] VITALS (57 sets, daily range): BP systolic 104–141; BP diastolic 52–88; PULSE 48–87; RESP 11–18; TEMP 36.1–36.6; O2SAT 93–100; BMI 33.5
[2025-03-04] MEDS: ACETAMINOPHEN 500 MG TABLET 1000 MG PO ×2 (10:26→17:44)
[2025-03-04] MEDS: LACTATED RINGERS 1,000 ML 999 ML IV CONT (10:31)
--- NOTE | 2025-03-04 10:38 | P.HP_ITS ---
H&P: HPI History of Present Illness Date/Time: 03/04/25 10:38 Chief Complaint: repeat c section Narrative: Patient is a 30 year old at 39 weeks gestation who presents for repeat c section. has been uncomplicated, aside from a previous c section for breech presentation. She denies strong contractions, leakage of fluid or vaginal bleeding. She reports good movement. Review of Systems Review of Systems: All systems reviewed & are unremarkable except as noted in HPI and below PMFSH Past Medical History Medical History Anemia Gilbert's syndrome Bile duct obstruction Anxiety Surgical History Surgical History Hx laparoscopic cholecystectomy 03/2023 History of delivery 07/02/2022 History of bunionectomy of both great toes Family History Family History Father Hypertension Mother Anemia Brain cancer Social History Social History Smoking status: Never smoker Alcohol intake: current Substance use: never Do You Feel Safe in your Home?: Yes Lack of Transportation: No Lack of Food: Never True Current Housing: I Have Housing Concerned About Future Housing: No Difficulty Paying Gas/Electric Bills: No Difficulty Paying for Meds: No Currently Unemployed: No Education: Bachelor's Degree Difficulty w/ Childcare or Family Care: No Living arrangements: with family Occupation/Education: occupation Gender identity (if verbalized by the patient): Female Sexual Orientation (if Verbalized by the Patient): Straight or Heterosexual Spiritual care concerns: No Meds Home Medications and Allergies Home Medications ?Medication ?Instructions ?Recorded ?Confirmed ?Type vit no.95-ferrous 1 tablet PO DAILY 02/13/25 02/13/25 History fumarate 28 mg-folic acid 800 mcg tablet () Allergies Allergy/AdvReac Type Severity Reaction Status Date / Time benzoin AdvReac Mild Blister Verified 03/04/25 10:16 Vital Signs Vital Signs - 24 hr 03/04/25 10:35 Pulse Rate 78 Blood Pressure 136/79 Exam Const: General: comfortable and no acute distress HENMT: Mouth: Yes moist mucous membranes Eyes: General: appearance normal, both eyes and all related structures Resp: Effort & Inspection: normal respiratory effort Cardio: Rate: regular rate Extrem: General: normal to inspection Psych: Mental Status: mental status grossly normal Assessment and Plan Assessment and plan (1) Previous section complicating : Code(s): O34.219 - Maternal care for unspecified type scar from previous de liverumair Status: Acute Assessment and Plan: - uncomplicated aside from previous c section for breech presentation - risks and benefits of repeat c section vs TOLAC discussed with patient who desires to proceed with repeat c section - FHR category I
--- NOTE | 2025-03-04 10:58 | PC.NURSE ---
1050--This RN noticed pt. coughing a little with a deep breath. Pt. reports SOB and a tickle in her chest along with some pressure. Pulse ox and EKG leds applied. NSR noted on monitor and SpO2 96% on room air. Phone call to Dr. Aguilar re: pt's reports, orders to continue to monitor and if pain not resolved in 15 minutes, give Benadryl 25mg p.o.
--- OUTSIDE RECORDS SUMMARY | 2025-03-04 10:58 | XMS_ITS | Clinical Summary ---
Author Organization [facility] Address [address] [place] [id number] Care Team Providers Care Inspecting And Testing Lead Hand Name Role Phone Pepper Valenzuela NP Primary Care Provider [phone] Allergies Active Allergy Reactions Criticality Noted Date [...] - 2023-2 5 season) 2024 PHQ-2 (Physician [place]) 07/18/2024 Cervical Cancer Screening Pa p with [...] patient's age to complete this topic Insurance [facility] Care Teams Inspecting And Testing Lead Hand Relationship Specialty Start Date End Date Pepper Valenzuela NP [address] [place] [address] PCP - General NURSE PRACTITIONER 12/29/22
--- NOTE | 2025-03-04 11:17 | PC.NURSE ---
1110--Pt. states she is feeling better at this time.
--- NOTE | 2025-03-04 11:38 | P.PNAN_ITS ---
Anes - Initial Pre Proc Eval Procedure: Operation Date: 03/04/25 12:00 Proposed Procedures p Repeat Section - Dashawn Aguilar MD Date/Time: 03/04/25 11:38 Surgeon: Dashawn Aguilar MD Pre Op Diagnosis: C Section Patient Data Age: 30 Gender: F Height: 1.73 m Weight: 100 kg Last Vital Signs Pulse 70 03/04/25 11:31 BP 135/78 03/04/25 11:31 Pulse Ox 96 03/04/25 11:29 O2 Del Method Room Air 03/04/25 11:04 Allergies Allergy/AdvReac Type Severity Reaction Status Date / Time benzoin AdvReac Mild Blister Verified 03/04/25 10:16 Home Medications ?Medication ?Instructions ?Recorded ?Confirmed ?Type vit no.95-ferrous 1 tablet PO DAILY 02/13/25 02/13/25 History fumarate 28 mg-folic acid 800 mcg tablet () Patient hx anesthesia problems: none Family hx anesthesia problems: none Results Review: All pre-operative results and documents have been reviewed as part of the pre- operative evaluation. [facility] Past Medical History Medical History Anemia Gilbert's syndrome Bile duct obstruction Anxiety Surgical History Surgical History Hx laparoscopic cholecystectomy 03/2023 History of delivery 07/02/2022 History of bunionectomy of both great toes Family History Family History Father Hypertension Mother Anemia Brain cancer Social History Social History Smoking status: Never smoker Second hand tobacco smoke exposure: No Alcohol intake: current Substance use: never Do You Feel Safe in your Home?: Yes Lack of Transportation: No Lack of Food: Never True Current Housing: I Have Housing Concerned About Future Housing: No Difficulty Paying Gas/Electric Bills: No Difficulty Paying for Meds: No Currently Unemployed: No Education: Bachelor's Degree Difficulty w/ Childcare or Family Care: No Living arrangements: with family Occupation/Education: occupation Gender identity (if verbalized by the patient): Female Sexual Orientation (if Verbalized by the Patient): Straight or Heterosexual Spiritual care concerns: No Anes - Eval Final PreProcedure Day of Procedure 03/04/25 11:38 Patient weight: obese Heart: regular rate and rhythm Lungs: clear to auscultation and normal air movement Airway: Mallampati scale class II Neurological: alert and oriented Last oral intake: >/= 8 hours ASA classification: II Emergent: no Anesthetic plan: proceed Anesthesia type and monitoring: regional spinal and standard monitoring Results Review: All pre-operative results and documents have been reviewed as part of the pre- operative evaluation. Informed Consent: The patient's anesthetic plan and its attendant risks and benefits were discussed with the patient/family/POA. Questions were solicited and answers provided to the satisfaction of the patient/family/POA.
[2025-03-04] MEDS: FAMOTIDINE 20 MG/2 ML VIAL IV PUSH (11:41)
[2025-03-04] MEDS: ONDANSETRON INJ 4 MG/2 ML VIAL IV PUSH (11:41)
[2025-03-04] MEDS: ceFAZolin 2 GM in SODIUM CHLORIDE 0.9% IV 50 ML 100 ML IVPB (11:42)
--- NOTE | 2025-03-04 11:43 | WPDHPUPDATE1 ---
History and Physical Update Update Date/Time: 03/04/25 11:43 History and Physical has been reviewed, including an updated exam of the patient. There are NO changes in the patient's condition. Risks, benefits, and alternatives have been discussed and questions answered. Patient agrees to proceed with procedure.
[2025-03-04 12:39] LABS: Syphilis IgG/IgM Antibody Non-Reactive (Nonreactive)
[2025-03-04] MEDS: LIDOCAINE 5% PATCH 1 PATCH TRANSDERM (13:30)
[2025-03-04] MEDS: OXYTOCIN 30 UNITS/NS 500 ML 30 UNITS/500 ML BAG 125 UNITS IV CONT (13:30)
[2025-03-04] MEDS: SIMETHICONE 80 MG TAB.CHEW PO ×2 (13:43→17:44)
[2025-03-04] MEDS: KETOROLAC 15 MG/ML VIAL (*BKC) IV PUSH ×2 (13:43→19:42)
[2025-03-04] MEDS: DOCUSATE SODIUM 100 MG CAPSULE PO (17:43)
[2025-03-04] MEDS: KCL 20 MEQ/D5/0.45% SOD CHL 1,000 ML 125 ML IV CONT (18:30)
--- NOTE | 2025-03-04 18:32 | OBPPTRN ---
1517-Patient transferred to post room #286 via stretcher. Support person present. Oriented to unit, room, information board, rooming in, admission packet and security measures. Patient verbalizes understanding.
[2025-03-05 04:40] VITALS: BP 106/66; PULSE 64; RESP 18; TEMP 36.4; O2SAT 98
[2025-03-05] MEDS: KETOROLAC 15 MG/ML VIAL (*BKC) IV PUSH (04:40)
[2025-03-05] MEDS: ACETAMINOPHEN 500 MG TABLET 1000 MG PO ×4 (04:40→22:29)
[2025-03-05 05:48] LABS: Hematocrit 27.0 % (37.0-47.0); Hemoglobin 8.4 g/dL (12.0-15.0); Immature Granulocyte Percent A 0.4 % (0-0.5); Lymphocytes Absolute Auto 1.47 K/mm3 (0.9-3.2); Mean Corpuscular HGB Conc 31.1 g/dl (32-36); Mean Corpuscular Hemoglobin 26.9 pg (26-34); Mean Corpuscular Volume 86.5 fl (80-100); Nucleated Red Blood Cells Absolute Auto 0.000 K/mm3 (0.0-0.012); Nucleated Red Blood Cells Perc 0.0 % (0.0-0.2); Platelet Count Result 180 k/mm3 (150-375); Red Blood Count 3.12 M/mm3 (4.2-5.4); White Blood Count 7.0 K/mm3 (4.5-10.0)
[2025-03-05 07:25] VITALS: BP 105/54; PULSE 56; RESP 16; TEMP 36.9; O2SAT 100
--- NOTE | 2025-03-05 08:09 | P.PNOB_ITS ---
OB - PN: Subj Subjective Date/time seen: 03/05/25 08:09 Interval history: PPD#1 s/p RLTCS Doing well, pain controlled Catheter removed this AM, awaiting spontaneous void Passing flatus OB - PN: Obj Data Labs 03/05/25 04:39 Labs: Laboratory Results - last 24 hr 03/04/25 03/05/25 10:20 04:39 WBC 7.0 RBC 3.12 L Hgb 8.4 L Hct 27.0 L MCV 86.5 MCH 26.9 MCHC 31.1 L RDW 13.4 Plt Count 180 MPV 11.1 H Immature Gran % (Auto) 0.4 Neut % (Auto) 71.8 Lymph % (Auto) 21.1 [place] % (Auto) 5.7 Eos % (Auto) 0.7 Baso % (Auto) 0.3 Lymph # (Auto) 1.47 [place] # (Auto) 0.4 Eos # (Auto) 0.1 Baso # (Auto) 0.0 Abs Immat Gran (auto) 0.03 Absolute Neuts (auto) 5.0 Absolute Nucleated RBC 0.000 Nucleated RBC % 0.0 Syphilis IgG/IgM Ab Non-reactive OB - PN A/P Time Spent With Patient Time: Total time spent is greater than 50% in coordination of care (as documented) at patient's floor/unit and/or counseling patient: Review of Systems 2 Review of Systems: All systems reviewed & are unremarkable except as noted in HPI and below Exam 2 Const: General: comfortable and no acute distress O rientation/consciousness: patient oriented x3 Resp: Effort & Inspection: normal respiratory effort GI: Other: soft, nontender, nondistended, incision c/d/i
[2025-03-05] MEDS: MULTIVIT/MIN/PREN/FOL AC/IRON TABLET 1 TAB PO (08:37)
[2025-03-05] MEDS: DOCUSATE SODIUM 100 MG CAPSULE PO ×2 (08:37→16:34)
[2025-03-05] MEDS: SIMETHICONE 80 MG TAB.CHEW PO ×2 (08:38→16:34)
[2025-03-05] MEDS: IBUPROFEN 600 MG TABLET PO ×3 (10:43→22:29)
[2025-03-05] MEDS: IRON SUCROSE COMPLEX 200 MG in SODIUM CHLORIDE 0.9% IV 100 ML 220 MG IVPB (11:37)
--- NOTE | 2025-03-05 12:49 | WPDANLDPN2 ---
Anes-Prog Note L&D Date/Time: 03/05/25 12:49 Comfortable throughout: section Neuraxial method: spinal Epidural/Spinal procedure site: clean & non-tender Neuro status: Neuro function grossly intact. Cardiovascular status: normal Respiratory status: normal Airway patency: baseline Mental status: baseline Post-Op hydration status: normal Vital Signs: Last Vital Signs Temp 36.9 C 03/05/25 07:25 Pulse 56 L 03/05/25 07:25 Resp 16 03/05/25 07:25 BP 105/54 L 03/05/25 07:25 Pulse Ox 100 03/05/25 07:25 O2 Del Method Room Air 03/04/25 16:00 Pain score (VAS): 2 I/O: Intake & Output 03/04/25 03/05/25 03/05/25 23:59 07:59 15:59 Intake Total 240 Output Total 850 300 Balance -850 -60 Post-procedural complaints: none Patient feedback: Patient satisfied with anesthetic care.
--- NOTE | 2025-03-05 12:49 | WPDANLDNPN2 ---
Anes-Prog Note L&D-Neuraxial Date/Time: 03/05/25 12:49 Neuraxial medications: intrathecal PF morphine Opiod-related complaints: none Patient feedback: Patient satisfied with post-operative pain management.
[2025-03-05 12:56] VITALS: BP 106/52; PULSE 56; RESP 16; TEMP 36.6; O2SAT 97
[2025-03-05 19:15] VITALS: BP 128/69; PULSE 65; RESP 18; TEMP 36.4; O2SAT 99
[2025-03-05] MEDS: LIDOCAINE 5% PATCH 1 PATCH TRANSDERM (19:33)
[2025-03-06] MEDS: IBUPROFEN 600 MG TABLET PO ×2 (04:36→11:12)
[2025-03-06] MEDS: ACETAMINOPHEN 500 MG TABLET 1000 MG PO ×2 (04:36→11:12)
[2025-03-06 08:05] VITALS: BP 122/69; PULSE 66; RESP 16; TEMP 36.6; O2SAT 98
--- NOTE | 2025-03-06 10:00 | P.PNOB_ITS ---
OB - PN: Subj Subjective Date/time seen: 03/06/25 10:01 Interval history: PPD#2 s/p RLTCS Doing well, pain controlled Spontaneous voids Passing flatus Ready for discharge home OB - PN: Obj Data Labs 03/05/25 04:39 OB - PN A/P Assessment and Plan (1) S/P : Code(s): Z98.891 - History of uterine scar from previous surgery Status: Acute Plan day: 2 Plan: routine care and discharge home Time Spent With Patient Time: Total time spent is greater than 50% in coordination of care (as documented) at patient's floor/unit and/or counseling patient: Review of Systems 2 Review of Systems: All systems reviewed & are unremarkable except as noted in HPI and below Exam 2 Const: General: comfortable and no acute distress O rientation/consciousness: patient oriented x3 Resp: Effort & Inspection: normal respiratory effort
--- NOTE | 2025-03-06 10:09 | PM.OBDSVD ---
DS: Admitting Diagnosis Discharge Date 03/06/25 Admitting Diagnosis repeat c section DS: Discharge Diagnosis Discharge Diagnosis (1) S/P : Code(s): Z98.891 - History of uterine scar from previous surgery Status: Acute OB - DS: Summary OB Procedures : None OB Procedures Intrapartum: Spontaneous Vag Delivery OB Procedures: : None Peripartum Data Procedures: Procedures Operation Date: 03/04/25 12:00 Actual Procedure Side Surgeon p Repeat Section Not Applicable Dashawn Aguilar MD Time Spent with Patient Time attestation: Total time spent providing and/or coordinating discharge services: Discharge Plan Discharge Attending physician on discharge: Dashawn Aguilar Discharging Clinician: Dashawn Aguilar Patient Disposition: Home Activity: may shower, may drive after 2 weeks, as tolerated and pelvic rest Diet: as tolerated Patient Instructions: Antibiotic Form Patient Language: French Stand Alone Forms: General Discharge Information Follow-up/Referrals: Dashawn Aguilar MD [Physician, AGENCY DEVELOPMENT MANAGER] - 1 Week Discharge Medications: New ibuprofen 600 mg Tablet 600 mg PO Q6HR Qty: 30 0RF Continued PNV no.95-ferrous fumarate-FA [] 28 mg iron- 800 mcg tablet 1 tablet PO DAILY Date of admission: 03/04/25 09:57 Primary Care Provider: Rainer Gonsalez Admitting Provider: Dashawn Aguilar Attending physician on admission: Dashawn Aguilar Condition: Stable
[2025-03-06] MEDS: SIMETHICONE 80 MG TAB.CHEW PO (11:12)
[2025-03-06] MEDS: DOCUSATE SODIUM 100 MG CAPSULE PO (11:12)
[2025-03-07 10:12] VITALS: BP 124/63; PULSE 72; RESP 16; TEMP 36.6; O2SAT 99
--- NOTE | 2025-03-08 15:20 | P.PCNOB_ITS ---
OB - Delivery Note Procedure Delivery date: 03/04/25 Pre-op diagnosis: Previous Delivery Post-op Diagnosis: Same Delivery monitor: External FHT Prior to decision for section, ACOG/SMFM labor guidelines were consider ed and discussed with the patient and staff. Decision made to proceed with the section.: Yes Procedure Performed: Repeat Secondary branch: low cervical, transverse Surgeon: Dashawn Aguilar MD Anesthesia type: Epidural Description of Procedure/Findings: The patient was taken to the operating room where she was placed in the dorsal supine position with a leftward tilt. The electronic monitor was placed and heart rate was found to be reassuring. She was prepped and draped in the normal sterile fashion, and anesthesia was checked to be adequate. A Pfannenstiel skin incision was made with the scalpel and carried through to the underlying layer of fascia with the scalpel. The fascia was incised in the midline and the incision extended laterally with the Stanley scissors. The superior aspect of the fascial incision was then grasped with Chelo clamps, elevated, and the underlying rectus muscles dissected off bluntly and with Stanley scissors. Attention was then turned to the inferior aspect of the fascial incision, which in similar fashion was grasped, elevated, and the rectus muscles dissected off.? The rectus muscles were then in the midline, and the peritoneum entered bluntly. The peritoneal incision was extended superiorly and inferiorly with good visualization of the bladder. With the bladder blade providing retraction and visualization, the lower uterine segment was incised in a transverse fashion with the scalpel. The uterine incision was then extended laterally. The bladder blade was removed and the 's head was elevated and delivered atraumatically. The remainder of the in tonny was then delivered without difficulty, and the 's nose and mouth were suctioned with the bulb suction. The umbilical cord was doubly clamped and cut. The was then handed off to the waiting nursing staff. Specimens then obtained as listed below. The placenta was then removed manually and the uterus was exteriorized and cleared of all clots and debris. The uterine incision was repaired with 0- Monocryl in a running, interlocked fashion. The posterior cul-de-sac was manually cleared of all clots and debris. The uterus was returned to the abdomen. The gutters were then manually cleared of all clots and debris.? The uterine incision was visualized to be hemostatic. The fascia was reapproximated with 0-Vicryl in a running fashion. The subcutaneous tissues were irrigated with warmed normal saline, and hemostasis was assured. The skin was closed with 4-0 monocryl in a running subcuticular stitch. Fundal pressure was applied to express remaining intrauterine clots and debris. The patient tolerated the procedure well. Sponge, lap, and needle counts were correct times three per nursing. The patient was taken to the recovery room in stable condition. Specimen: No Urine Output: 300 Pathology: None sent Complications: No immediate complications Condition: Stable Disposition: Floor [place] Baby Date of : 03/04/25 Gestational Age by Date: 39 gender: Female presentation: vertex position: Left Occiput Anterior Placenta delivery description: Expressed Cord Vessel Description: 3 Vessels
== END 2025-03-06 11:30 | disposition home or self-care (01) | DRG 788 ==
LOC: ANHLDR 10:01 → ANHOB2 15:18
PROVIDERS: Admitting Provider Obstetrics & Gynecology; PCP Family Medicine; Visit Provider Obstetrics & Gynecology
PROC: 10D00Z1 Extraction of Products of Conception, Low, Open Approach (ICD-10-PCS; CPT 59514; principal; 2025-03-04 12:00)
DX: O34.211 Maternal care for low transverse scar from previous cesarean delivery (principal); Z3A.39 39 weeks gestation of pregnancy; Z37.0 Single live birth
CPT/HCPCS: 36415; 85025; 86593; 86850; 86900; 86901; J0690; A9270; J1200; J1756; J1885; J2274; J2371; J2405; J2590; J3480; J7120